=== PATIENT | male | born 1940 | race Caucasian/White ===

== ENCOUNTER 2016-08-06 18:10 | Inpatient (IN) | payer OTHER ==
[~2016-08-06] VITALS: Ht 188 cm; Wt 118.1 kg
[~2016-08-06 18:10] MED LIST: DOXA4TAB3 PO; GLIP5TAB PO; LISI-313 PO; PRAV40TA PO
[2016-08-06] MEDS ORDERED: SOD CHLORIDE 0.9% 500 ML IV STA (19:07)
[2016-08-06 19:30] LABS: BASOPHILS % 0.2 % (0.0-2.0); EOSINOPHILS % 0.3 % (0.0-7.0); HEMOGLOBIN 12.4 g/dl (14.0-18.0); LYMPHOCYTES # 0.7 10^3/ul (0.8-2.9); LYMPHOCYTES % 12.8 % (15.0-51.0); MEAN CORPUSCULAR HGB CONC 34.5 g/dl (32.0-37.0); MEAN CORPUSCULAR VOLUME 95.7 fl (82.0-101.0); MEAN PLATELET VOLUME 8.3 fl (7.4-10.4); MONOCYTE # 0.3 10^3/ul (0.3-0.9); MONOCYTES % 4.9 % (0.0-11.0); NEUTROPHIL # 4.4 10^3/ul (1.6-7.5); NEUTROPHILS % 81.8 % (39.0-77.0); PLATELET COUNT 125 10^3/UL (140-440); RED BLOOD COUNT 3.76 10^6/ul (4.70-6.10); RED CELL DISTRIBUTION WIDTH 13.8 % (11.5-14.5); UNCORRECTED WBC 5.3 10^3/ul (4.8-10.8); WHITE BLOOD COUNT 5.3 10^3/ul (4.8-10.8)
[2016-08-06 19:33] LABS: CONDITION 1
--- NOTE | 2016-08-06 19:36 | RADRPT ---
PROCEDURE: XR Chest. CLINICAL INDICATION: Chest pain. TECHNIQUE: Single frontal view of the chest was obtained COMPARISON: 12/17/2014. FINDINGS: Cardiomegaly. Atherosclerotic calcifications in the thoracic aorta. Mild patchy air space disease. There is no pleural effusion or pneumothorax. IMPRESSION: 1. Cardiomegaly with atherosclerotic calcifications in the thoracic aorta. 2. Mild failure. RPTAT: [facility]U Physician Issa Date Time Electronically viewed and signed by Thu Montaño Physician on 08/06/2016 19:36 RS/
[2016-08-06 19:52] LABS: INR 0.97; PROTIME 12.9 Sec (12.2-14.2)
[2016-08-06 19:53] LABS: PARTIAL THROMBOPLASTIN TIME 32.6 Sec (25.0-35.0)
[2016-08-06 19:54] LABS: POTASSIUM 4.4 mmol/L (3.5-5.1)
[2016-08-06 19:57] LABS: CALCIUM 9.1 mg/dl (8.4-10.2); CREATININE 1.18 mg/dl (0.61-1.24)
[2016-08-06 20:09] LABS: TROPONIN-I 0.105 ng/ml (0.00-0.12)
[2016-08-06 20:36] LABS: ADD UMIC YES; URINE BILIRUBIN (Dip) NEGATIVE (NEGATIVE); URINE BLOOD (Dip) NEGATIVE (NEGATIVE); URINE COLOR LT. YELLOW (YELLOW); URINE GLUCOSE (Dip) NEGATIVE (NEGATIVE); URINE KETONES (Dip) NEGATIVE (NEGATIVE); URINE LEUKOCYTE ESTERASE (Dip) NEGATIVE (NEGATIVE); URINE NITRITE (Dip) NEGATIVE (NEGATIVE); URINE TOTAL PROTEIN (Dip) 1+ (NEGATIVE); URINE UROBILINOGEN (Dip) 0.2 E.U./dL (0.1-1.0)
[2016-08-06] MEDS ORDERED: SOD CHLORIDE 0.9% 1,000 ML IV SCH (20:39)
--- NOTE | 2016-08-06 20:44 | ERA ---
ER Documentation Chief Complaint Date/Time DATE: 08/06/16 TIME: 20:40 Chief Complaint RAPID HEART BEAT AT HOME, DIZZINESS HPI This is a 75-year-old male who presents to the emergency room for evaluation of palpitations, dizziness, and slight chest discomfort. He states that the symptoms occurred at this morning while he was outside, he states that he felt dizzy and sat down. He states that when he sat down he became very sweaty, and felt extremely weak. He states that he felt his heart racing and he felt a slight pressure. The patient states that he called his caregiver who called 911 and transfer the patient to the emergency room. He is denying any active chest pain at this time. ROS All systems reviewed and are negative except as per history of present illness. Medications Home Meds Reported Medications Lisinopril* (Lisinopril*) 5 Mg Tablet, 5 MG PO DAILY, #30 TAB 01/31/16 Doxazosin Mesylate* (Doxazosin Mesylate*) 4 Mg Tablet, 4 MG PO HS, TAB 12/17/14 Pravastatin Sodium* (Pravachol*) 40 Mg Tablet, 40 MG PO HS 12/17/14 Glipizide XL* (Glucotrol XL*) 5 Mg Tab.er.24, 5 MG PO DAILY 12/17/14 Allergies Allergies: Coded Allergies: Penicillins (Verified Allergy, Unknown, 01/31/16) bacitracin (Verified Allergy, Unknown, 01/31/16) neomycin (Verified Allergy, Unknown, 01/31/16) polymyxin B (Verified Allergy, Unknown, 01/31/16) PMhx/Soc History of Surgery: Yes (Varicose veins, 55 years ago. Patch in a ulcer 50 years ago.) Anesthesia Reaction: No Hx Neurological Disorder: No Hx Respiratory Disorders: No Hx Cardiac Disorders: Yes (Cardiologyst monitoring one of his heart valve. CAD) Hx Psychiatric Problems: No Hx Miscellaneous Medical Probl: No (diabetes, htn) Hx Alcohol Use: Yes (Sometimes) Hx Substance Use: No Hx Tobacco Use: No Smoking Status: Never smoker Physical Exam Vitals Vital Signs Date Time Temp Pulse Resp B/P Pulse Ox O2 Delivery O2 Flow Rate FiO2 08/06/16 19:04 82 20 106/66 98 Room Air 08/06/16 18:16 98.7 84 18 115/63 96 Physical Exam INITIAL VITAL SIGNS: Reviewed by me GENERAL: The patient is well developed and appropriate for usual state of health in no apparent distress HEENT: Pupils equal, round, and reactive to light. EOMI. There is no scleral icterus. NECK: C-spine is soft and supple, there is no meningismus. There is no cervical lymphadenopathy. LUNGS: Clear to auscultation bilaterally. There are no rales, wheezes or rhonchi. HEART: Regular rate and rhythm, no murmurs, clicks, rubs or gallops. ABDOMEN: Soft, non-tender, non-distended. There are bowel sounds in all four quadrants. No rebound or guarding. EXTREMITIES: 2+ pitting edema in the bilateral lower extremities, cellulitis of the bilateral lower extremities NEUROLOGICAL: The patient moves all four extremities with 5/5 strength. Cranial nerves II - XII are intact. Normal gait. Alert and oriented SKIN: There is no apparent rash or petechiae. HEME/LYMPHATIC: There is no evidence of excessive bruising or lymphedema. PSYCHIATRIC: The patient does not appear anxious or depressed. Result Diagram: 08/06/16190908/06/161909 Results 24 hrs Laboratory Tests Test 08/06/16 19:10 Activated Partial Thromboplast Time 32.6Sec Anion Gap 18 Basophils # 0.010^3/ul Basophils % 0.2% Blood Urea Nitrogen 22mg/dl Calcium Level 9.1mg/dl Carbon Dioxide Level 24mmol/L Chloride Level 107mmol/L Creatinine 1.18mg/dl Eosinophils # 0.010^3/ul Eosinophils % 0.3% Glucose Level 139mg/dl Hematocrit 36.0% Hemoglobin 12.4g/dl INR International Normalized Ratio 0.97 Lymphocytes # 0.710^3/ul Lymphocytes % 12.8% Mean Corpuscular Hemoglobin 33.0pg Mean Corpuscular Hemoglobin Concent 34.5g/dl Mean Corpuscular Volume 95.7fl Mean Platelet Volume 8.3fl Monocytes # 0.310^3/ul Monocytes % 4.9% Neutrophils # 4.410^3/ul Neutrophils % 81.8% Nucleated Red Blood Cells # 0.010^3/ul Nucleated Red Blood Cells % 0.0/100WBC Platelet Count 19091^3/UL Potassium Level 4.4mmol/L Prothrombin Time 12.9Sec Prothrombin Time Ratio 1.0 Red Blood Count 3.7610^6/ul Red Cell Distribution Width 13.8% Sodium Level 145mmol/L Troponin I 0.105ng/ml White Blood Count 5.310^3/ul Current Medications Medications (Trade) Dose Ordered Sig/Chaparrita Route PRN Reason Start Time Stop Time Status Last Admin Dose Admin Sodium Chloride (NS) 500 ml @ 500 mls/hr Q1H STAT IV 08/06/16 19:07 08/06/16 20:06 DC 08/06/16 19:20 Procedures/MDM EKG: Rate/Rhythm: [Normal Sinus Rhythm] QRS, ST, T-waves: [No changes consistent w/ acute ischemia] Impression: [No evidence of ischemia or arrhythmia] Chest X-ray 1V Interpreted by me: Soft Tissue: No acute abnormalities Bones: No acute abnormalities Mediastinum/Cardiac Silhouette/Lungs: [No acute abnormalities] This 75-year-old male presents to the emergency room for evaluation of palpitations and chest discomfort. This patient is 75-years old with a history of hypertension. Lab work was obtained including a troponin. This patient's EKG did show slightly peaked T waves however no evidence of acute ischemia of his first EKG. His troponin result came back and it was at the upper limit of normal. I reviewed his previous troponins and they have all been negative. Given the fact that this patient does have a slightly elevated troponin from his baseline and given his symptoms he will be placed in for admission at this time for cardiac evaluation for ACS rule out. The patient is okay with her plan of care, he is hemodynamically stable at this time. I have spoken with her panel physician, Dr. song who accepts the patient at this time. Departure Diagnosis: Primary Impression: Palpitations Additional Impressions: Chest pain Normocytic anemia Thrombocytopenia Condition: Stable JACKMARCOS SOLIMANGLORIA MIRANDA Aug 06, 2016 20:44
[2016-08-06] MEDS ORDERED: ONDANSETRON 4 MG INJ IV PRN (21:00)
[2016-08-06] MEDS ORDERED: ACETAMINOPHEN 325 MG TAB PO PRN (21:00)
[2016-08-06 21:05] LABS: URINE RBCS 0-2 /HPF (0)
[2016-08-06 21:06] LABS: BACTERIA,URINE FEW; SQUAMOUS EPITHELIAL CELL,UR FEW
[2016-08-07] VITALS (7 sets, daily range): BP systolic 100–119; BP diastolic 58–59; PULSE 72–77; RESP 16–20; TEMP 98.5; Ht 188 cm; Wt 118.1 kg
[2016-08-07 02:41] LABS: CK-MB 1.11 ng/ml (0.0-2.4)
[2016-08-07 02:44] LABS: TROPONIN-I 0.098 ng/ml (0.00-0.12)
[2016-08-07] MEDS ORDERED: NACL 0.9% 3 ML SYG IV SCH (03:00)
[2016-08-07] MEDS ORDERED: morphine 2 MG INJ IV PRN (03:00)
[2016-08-07] MEDS ORDERED: ONDANSETRON 4 MG INJ IV PRN (03:00)
[2016-08-07] MEDS ORDERED: DOCUSATE SODIUM 100 MG CAP PO PRN (03:00)
[2016-08-07] MEDS ORDERED: HYDROCODONE/APAP (5/325) TAB PO PRN (03:00)
[2016-08-07] MEDS ORDERED: GLUCOSE GEL 15 GRAM TUBE PO PRN ×2 (04:00)
[2016-08-07] MEDS ORDERED: GLUCOSE GEL 15 GRAM TUBE BUCCAL PRN (04:00)
[2016-08-07] MEDS ORDERED: GLUCAGON 1 MG INJ IM PRN (04:00)
[2016-08-07] MEDS ORDERED: DEXTROSE 50% 50 ML SYRINGE IV PRN ×2 (04:00)
[2016-08-07 06:09] LABS: BASOPHILS % 0.3 % (0.0-2.0); EOSINOPHILS # 0.1 10^3/ul (0.0-0.5); EOSINOPHILS % 1.3 % (0.0-7.0); HEMATOCRIT 32.8 % (42.0-52.0); HEMOGLOBIN 11.4 g/dl (14.0-18.0); LYMPHOCYTES # 0.8 10^3/ul (0.8-2.9); LYMPHOCYTES % 19.1 % (15.0-51.0); MEAN CORPUSCULAR HEMOGLOBIN 33.2 pg (29.0-33.0); MEAN CORPUSCULAR HGB CONC 34.6 g/dl (32.0-37.0); MEAN CORPUSCULAR VOLUME 95.8 fl (82.0-101.0); MEAN PLATELET VOLUME 8.6 fl (7.4-10.4); MONOCYTE # 0.3 10^3/ul (0.3-0.9); NEUTROPHILS % 72.3 % (39.0-77.0); PLATELET COUNT 109 10^3/UL (140-440); RED BLOOD COUNT 3.42 10^6/ul (4.70-6.10); RED CELL DISTRIBUTION WIDTH 13.9 % (11.5-14.5); UNCORRECTED WBC 4.1 10^3/ul (4.8-10.8); WHITE BLOOD COUNT 4.1 10^3/ul (4.8-10.8)
[2016-08-07 06:13] LABS: POTASSIUM 4.3 mmol/L (3.5-5.1)
[2016-08-07 06:14] LABS: CONDITION 1
[2016-08-07 06:15] LABS: CREATININE 0.98 mg/dl (0.61-1.24)
[2016-08-07 06:16] LABS: CALCIUM 8.6 mg/dl (8.4-10.2); CHOL/HDL RATIO 3.9 RATIO; MAGNESIUM 1.9 mg/dl (1.7-2.5)
[2016-08-07] MEDS: INSULIN ASPART [NOVOLOG] 3 ML PEN SC SCH ×3 (08:00→20:59)
[2016-08-07 08:23] LABS: TROPONIN-I 0.061 ng/ml (0.00-0.12)
[2016-08-07 08:43] LABS: CK-MB 1.51 ng/ml (0.0-2.4)
[2016-08-07] MEDS ORDERED: glipiZIDE (XL) 5 MG TAB PO SCH (09:00)
--- NOTE | 2016-08-07 09:07 | HP ---
DATE OF ADMISSION: 08/06/2016 TIME: 11:00 p.m. CHIEF COMPLAINT: Dizziness and diaphoresis. HISTORY OF PRESENT ILLNESS: The patient is a 75-year-old male with a history of diabetes and diabet ic foot ulcer. Patient also reportedly has a history of a valve stenosis and is scheduled to receiv e a valve replacement in the future once his diabetic foot ulcer is taken care of. The patient is roy pposed to receive a skin graft at [facility] tomorrow. The patient is not clear which cardiac valv e it is that is going to be replaced. The patient states that he felt dizzy earlier today. He repo rts some diaphoresis, tried to check his blood pressure, but his monitor blood pressure cuff was not working. Denies any chest pain. Denies any shortness of breath. He states that this has happened before in the past but has resolved on its own. He has no other complaints at this time. PAST MEDICAL HISTORY: Gea-apezaap-vwbkxixld diabetes, hypertension, dyslipidemia, varicose veins wi th ulcer on his feet. The patient is supposed to get a skin graft tomorrow at [facility] . The patient also has a history of heart valve and is supposed to have a replacement in the near [facility] once his ulcer has resolved. The patient also had a history of right inguinal hernia repair. HOME MEDICATIONS: 1. Lisinopril. 2. Doxazosin. 3. Pravastatin. 4. Glipizide. ALLERGIES: 1. PENICILLIN. 2. BACITRACIN. 3. NEOMYCIN. 4. POLYMYXIN B. FAMILY HISTORY: Denies. SOCIAL HISTORY: Denies any alcohol, tobacco, or drug abuse. REVIEW OF SYSTEMS: A 12-point review of systems is negative except as in HPI. PHYSICAL EXAMINATION: VITAL SIGNS: Temperature is 98.7, pulse is 64, respiratory rate is 20, blood pressure 98/64, satura tion 98% on 2 liters. GENERAL: No acute distress, alert and oriented. HEENT: Normocephalic, atraumatic. LUNGS: Clear to auscultation. CARDIOVASCULAR: Regular rate and rhythm. ABDOMEN: Nondistended, nontender, soft. EXTREMITIES: No clubbing, cyanosis, or edema. Right leg covered in dressing. LABORATORIES: CBC: White count was 5.3, hemoglobin 12.4, platelets are 125. Chemistry: Sodium is 145, potassium 4.4, anion gap 18, BUN is 22. INR is 0.97. UA is within normal limits except for 1 + total protein, and elevated specific gravity. DIAGNOSTICS: Chest x-ray shows cardiomegaly with atherosclerotic calcifications in the thoracic aor ta. ASSESSMENT AND PLAN: 1. Dizziness with diaphoresis is likely secondary to also aortic valve stenosis. It is unclear whic h valve is stenotic but its clinical presentation would be consistent with an aortic valve stenosis. Will obtain a 2D echo to confirm this. The patient does have good followup with his PCP and is sc heduled to receive aortic valve replacement in the future once his foot ulcer is resolved. The poppy ent denies any chest pain, shortness of breath. Will also obtain a carotid ultrasound to rule out an y significant stenosis in the carotids. 2. Diabetes. Continue home medications. 3. Hypertension. We will hold p.o. medications. Blood pressure is running low, his hypotension co uld also be responsible for his dizziness and diaphoresis. 4. Foot ulcer. This could be secondary to stasis disease, ulcers, diabetes. Patient is scheduled to receive a skin graft tomorrow. He does have home health already with wound care. 5. Prophylaxis: Lovenox. Dictated By: CYRIL ELAINE MD BS/NTS Conf#: [id number] DID#: [id number]
--- NOTE | 2016-08-07 09:59 | RADRPT ---
PROCEDURE: Carotid ultrasound CLINICAL INDICATION: Dizziness, carotid bruits TECHNIQUE: Andre scale, color doppler, spectral doppler ultrasound of the bilateral carotid and kadeem tebral arteries. This study does indirectly reference the measurement of the distal ICA diameter as the denominator f or stenosis measurement. Validated velocity measurements with angiographic measurements, velocity cr iteria are extrapolated from diameter data as defined by: *Cartoid artery stenosis: andre-scale and D oppler US diagnosis. Society of Radiologists in Ultrasound Consensus Conference. Radiology 2003; 229 : 340-346. SRU Consensus Conference Criteria for the Diagnosis of Carotid Artery Stenosis* Degree of Stenosis, % ICA PSV, cm/sec Plaque Estimate, % ICA/CCA PSV Ratio Normal <125 None <2.0 <50 <125 <50 <2.0 50 69 125-230 >50 2.0-4.0 >70 but less than near occlusion >230 >50 <4.0 Near occlusion High, low, or undetectable Visible Variable Total occlusion Undetectable Visible, no detectable lumen Not applicable COMPARISON: No prior studies are available for comparison. FINDINGS: Location Right CCA65 cm/sec Prox ICA 44 cm/sec Mid ICA65 cm/sec Dist ICA56 cm/sec ECA75 cm/sec ICA/CCA1.0 Left CCA78 cm/sec Prox ICA 59 cm/sec Mid ICA50 cm/sec Dist ICA49 cm/sec ECA44 cm/sec ICA/CCA0.8 Plaque burden: A minimal amount of plaque is present within the visualized portions of both internal carotid arteries however there is no evidence of flow acceleration to suggest a hemodynamically sig nificant stenosis. Antegrade flow is seen within the vertebral arteries bilaterally. IMPRESSION: A minimal amount of plaque is present within the visualized portions of both internal carotid arteri es however there is no evidence of flow acceleration to suggest a hemodynamically significant stenos is. RPTAT: AADD .Joe Prince MD, MD Date Time Electronically viewed and signed by .Joe Prince MD, on 08/07/2016 09:58 .B/
[2016-08-07] MEDS: ENOXAPARIN 40 MG/0.4 ML SYG SC SCH (11:02)
--- NOTE | 2016-08-07 15:44 | CONS ---
Date/Time of Note Date/Time of Note DATE: 08/07/16 TIME: 15:40 Consult Date/Type/Reason Admit Date/Time Initial Consult Date Type of Consultation: pulmonary Subjective Patient stable no new events Denies chest pain no fever no chills, no sputum production Explained his episode of transient dizziness presyncopal symptoms prior to this admission He also contacted his plastic surgeon who wants to do a flap procedure for lower extremity wounds. This procedure has been rescheduled. Objective Vital Signs Date Time Temp Pulse Resp B/P Pulse Ox O2 Delivery O2 Flow Rate FiO2 08/07/16 14:42 71 16 97/60 100 Room Air 08/07/16 13:41 2.0 08/07/16 06:35 98.5 PHYSICAL EXAMINATION: Elderly gentleman comfortable at rest no acute distress VITAL SIGNS: GENERAL: No acute distress, alert and oriented. HEENT: Normocephalic, atraumatic. LUNGS: Clear to auscultation. No added sounds or murmurs CARDIOVASCULAR: Regular rate and rhythm. ABDOMEN: Nondistended, nontender, soft. EXTREMITIES: No clubbing, cyanosis, or edema. Both lower extremities under dressings Results/Medications Result Diagram: 08/07/16 0520 08/07/16 0520 Results 24 hrs Laboratory Tests Test 08/06/16 19:10 08/06/16 20:25 08/07/16 02:00 08/07/16 05:20 Activated Partial Thromboplast Time 32.6 Anion Gap 18 H 14 Basophils # 0.0 0.0 Basophils % 0.2 0.3 Blood Urea Nitrogen 22 H 18 Calcium Level 9.1 8.6 Carbon Dioxide Level 24 24 Chloride Level 107 108 Creatinine 1.18 0.98 Eosinophils # 0.0 0.1 Eosinophils % 0.3 1.3 Glucose Level 139 115 Hematocrit 36.0 L 32.8 L Hemoglobin 12.4 L 11.4 L INR International Normalized Ratio 0.97 Lymphocytes # 0.7 L 0.8 Lymphocytes % 12.8 L 19.1 Mean Corpuscular Hemoglobin 33.0 33.2 H Mean Corpuscular Hemoglobin Concent 34.5 34.6 Mean Corpuscular Volume 95.7 95.8 Mean Platelet Volume 8.3 8.6 Monocytes # 0.3 0.3 Monocytes % 4.9 7.0 Neutrophils # 4.4 3.0 Neutrophils % 81.8 H 72.3 Nucleated Red Blood Cells # 0.0 0.0 Nucleated Red Blood Cells % 0.0 0.0 Platelet Count 125 L 109 L Potassium Level 4.4 4.3 Prothrombin Time 12.9 Prothrombin Time Ratio 1.0 Red Blood Count 3.76 L 3.42 L Red Cell Distribution Width 13.8 13.9 Sodium Level 145 H 142 Troponin I 0.105 0.098 White Blood Count 5.3 # 4.1 #L Urine Bacteria FEW Urine Bilirubin NEGATIVE Urine Clarity CLEAR Urine Color LT. YELLOW Urine Glucose NEGATIVE Urine Hemoglobin NEGATIVE Urine Ketones NEGATIVE Urine Leukocyte Esterase NEGATIVE Urine Microscopic RBC 0-2 Urine Microscopic WBC 0-2 Urine Nitrite NEGATIVE Urine Specific [place] >=1.030 H Urine Squamous Epithelial Cells FEW Urine Total Protein 1+ H Urine Urobilinogen 0.2 E.U./dL Urine pH 6.0 Creatine Kinase 57 Creatine Kinase Index 1.9 Creatinine Kinase MB (Mass) 1.11 Cholesterol Level 122 Cholesterol/HDL Ratio 3.9 HDL Cholesterol 31 Hemoglobin A1c 5.5 LDL Cholesterol, Calculated 76 Magnesium Level 1.9 Triglycerides Level 75 Test 08/07/16 07:53 08/07/16 10:12 08/07/16 12:17 Creatine Kinase 77 Creatine Kinase Index 2.0 Creatinine Kinase MB (Mass) 1.51 Troponin I 0.061 Bedside Glucose 123 156 Medications Current Medications Ondansetron HCl (Zofran Inj) 4 mg Q6H PRN IV NAUSEA AND/OR VOMITING; Start 08/07 at 03:00 Acetaminophen/ Hydrocodone Bitart ([place] (5/325)) 1 tab Q6H PRN PO MODERATE PAIN LEVEL 4-6; Start 08/07/16 at 03:00 Morphine Sulfate (morphine) 2 mg Q4H PRN IV SEVERE PAIN LEVEL 7-10; Start at 03:00 Docusate Sodium (Colace) 100 mg Q12H PRN PO CONSTIPATION; Start 08/07/16 at 03: 00 Enoxaparin Sodium (Lovenox) 40 mg DAILY SC Last administered on 08/07/16t 11:02 ; Admin Dose 40 MG; Start 08/07/16 at 09:00 Diagnostic Test (Pha) (Accucheck) 1 ea 02 XX ; Start 08/08/16 at 02:00 Miscellaneous Information 1 ea NOTE XX ; Start 08/07/16 at 04:00 Glucose (Glutose) 15 gm Q15M PRN PO DECREASED GLUCOSE; Start 08/07/16 at 04:00 Glucose (Glutose) 22.5 gm Q15M PRN PO DECREASED GLUCOSE; Start 08/07/16 at 04:00 Dextrose (D50w Syringe) 25 ml Q15M PRN IV DECREASED GLUCOSE; Start 08/07/16 at 04:00 Dextrose (D50w Syringe) 50 ml Q15M PRN IV DECREASED GLUCOSE; Start 08/07/16 at 04:00 Glucagon (Glucagen) 1 mg Q15M PRN IM DECREASED GLUCOSE; Start 08/07/16 at 04:00 Glucose (Glutose) 15 gm Q15M PRN BUCCAL DECREASED GLUCOSE; Start 08/07/16 at 04: 00 Atorvastatin Calcium (Lipitor) 10 mg DAILY@21 PO ; Start 08/07/16 at 21:00 Assessment/Plan Chief Complaint/Hosp Course ASSESSMENT AND PLAN: 1. Dizziness with diaphoresis is likely secondary to also aortic valve stenosis. Pending aortic valve replacement following resolution of lower extremity wounds. Will need cardiology evaluation for presyncopal event. Bilateral carotid Dopplers pending patient has a history of right carotid endarterectomy. 2. Diabetes. Continue home medications. 3. Hypertension. Antihypertensives currently on hold pending reevaluation by cardiology. Low blood pressure this morning was noted. 4. Foot ulcer. This could be secondary to stasis disease, ulcers, diabetes. Patient is scheduled to receive a skin graft tomorrow. 5. Prophylaxis: Lovenox. Disposition pending admission from ER to telemetry. Problems: RAY SOTOMAYOR MD, [facility] Aug 07, 2016 15:44
--- NOTE | 2016-08-07 15:58 | RADRPT ---
Echocardiogram Report Patient Name: CHRISTEN LOPEZ Gender: Male Date: 1940 Study Date: 07-Aug-2016 Carboy Filler: Jose David Davis [facility] [place] Location: [facility] Ref. Physician: CYRIL ELAINE Quality: Adequate Procedures: Transthoracic echocardiogram with complete 2D, M-Mode, and doppler examination. Indications: Dizziness. 2D/M Mode Doppler Measurement Value Normal Ranges Measurement Value Normal Ranges LVIDd 2D 5.8 3.5 - 5.6 cm THEO Vmax 0.6 cm2 LVIDs 2D 3.7 2.1 - 4.1 cm THEO VTI 0.7 cm2 FS 2D 36.2 % AV Mean Jake 3.8 m/sec LVPWd 2D 1.2 0.6 - 1.1 cm AV Mean PG 62.0 mmHg IVSd 2D 1.1 0.6 - 1.1 cm AV Peak Jake 4.9 m/sec IVS/LVPW 2D 1.0 AV Peak PG 96.0 mmHg AoR Diam 2D 3.4 2.0 - 3.7 cm AV VTI 123.0 cm LA/Ao 2D 1 0 - 1 LVOT Mean Jake 0.8 m/sec EDV 2D 193.0 cm3 LVOT Mean PG 2.0 mmHg ESV 2D 50.2 cm3 LVOT Peak Jake 1.0 m/sec LA Dimen 2D 4.1 2.3 - 4.0 cm LVOT Peak PG 4.0 mmHg LVOT Diam 2.0 cm LVOT VTI 28.6 cm LVOT Area 3.1 cm2 MV E Peak Jake 1.1 m/sec MV A Peak Jake 1.4 m/sec MV E/A 0.8 MV Decel Time 194 msec MV E/A 0.8 TR Peak Jake 3.2 m/sec TR Peak PG 41.0 mmHg RVSP 49.0 mmHg Findings Left Ventricle: Normal left ventricular systolic function. Normal left ventricular cavity size. Mild concentric left ventricular hypertrophy. Ejection fraction is visually estimated at 55 %. Tissue Doppler/Mitral Doppler indices are consistent with impaired relaxation (Stage I diastolic dysfunction). Right Ventricle: Normal right ventricular size. Normal right ventricular systolic function. Left Atrium: There is mild enlargement of left atrium. Right Atrium: The right atrium is normal in size. Mitral Valve: Mitral valve leaflets appear mildly thickened. Mild mitral annular calcification. Mild mitral valve regurgitation. Aortic Valve: Aortic valve not well visualized. Severe aortic stenosis. Aortic valve Max velocity 4.90 m/sec. Max PG 96.00 mmHg. Mean PG 62.00 mmHg. Aortic valve area 0.73 cm2. Aortic cusps appear severely calcified. Tricuspid Valve: Normal appearance of the tricuspid valve. Estimated peak PA systolic pressure 49 mmHg. There is mild to moderate tricuspid regurgitation. Pericardium: Normal pericardium with no significant pericardial effusion. Aorta: Normal aortic root. IVC: Dilated IVC with respiratory collapse consistent with elevated right atrial pressure. Conclusions 1.Normal left ventricular systolic function. Normal left ventricular cavity size. Mild concentric left ventricular hypertrophy. Ejection fraction is visually estimated at 55 %. Tissue Doppler/Mitral Doppler indices are consistent with impaired relaxation (Stage I diastolic dysfunction). 2.There is mild enlargement of left atrium. 3.Mitral valve leaflets appear mildly thickened. Mild mitral annular calcification. Mild mitral valve regurgitation. 4.Aortic valve not well visualized. Severe aortic stenosis. Aortic valve Max velocity 4.90 m/sec. Max PG 96.00 mmHg. Mean PG 62.00 mmHg. Aortic valve area 0.73 cm2. Aortic cusps appear severely calcified. 5.Normal appearance of the tricuspid valve. Estimated peak PA systolic pressure 49 mmHg. There is mild to moderate tricuspid regurgitation. 6.Dilated IVC with respiratory collapse consistent with elevated right atrial pressure. Electronically Signed By: Deepak Denton 07-Aug-2016 15:57:46 -0800 Patient Name: CHRISTEN LOPEZ Study Date: 07-Aug-2016 [id number]
--- NOTE | 2016-08-07 16:59 | CONS ---
DATE OF ADMISSION: 08/06/2016 DATE OF CONSULTATION: 08/07/2016 REFERRING PHYSICIAN: Dr. Sotomayor. REASON FOR CONSULTATION: Aortic stenosis. CHIEF COMPLAINT: Dizziness, diaphoresis. HISTORY OF PRESENT ILLNESS: Thank you for this referral. History obtained from the patient, review of the old chart, discussion with the physician and staff. This is a pleasant 75-year-old gentlema n with history of apparently known severe aortic stenosis. He has been evaluated by cardiology and possibly CT surgery as well with history of AVR, who came to the above complaint. Yesterday he had some dizziness and lightheadedness. It lasted about 10 minutes. He did not pass out. He did not h ave any syncopal episode. He also had some diaphoresis with no chest pain or pressure. He has been admitted to rule out myocardial infarction. He said he is currently feeling fine. PAST MEDICAL HISTORY: History of aortic stenosis. The patient stated that he has been evaluated by cardiology and CT surgery and the cardiothoracic surgeon told him that he needs to have his skin gr aft done before can get his valve replaced. He was scheduled to get a skin graft in fact tomorrow. The patient also has history of diabetes, hypertension, dyslipidemia, has had varicose vein and has lower extremity revascularization and lower extremity varicose veins stripping done. PAST SURGICAL HISTORY: Right inguinal hernia repair. He also had a coronary angiography done. He is not sure where it was done, but he said he was told that his coronaries were fine. MEDICATIONS AT HOME 1. Lisinopril. 2. Doxazosin. 3. Pravastatin. 4. Glipizide. ALLERGIES: 1. PENICILLIN. 2. BACITRACIN. 3. NEOMYCIN. 4. POLYMYXIN. FAMILY HISTORY: No reported coronary artery disease. SOCIAL HISTORY: Does not smoke or drink. REVIEW OF SYSTEMS: As above mentioned, denied all other. PHYSICAL EXAMINATION: VITAL SIGNS: Temperature 98.5, heart rate of 71, blood pressure of 97/60, respiratory rate of 16, s aturating 100%. HEENT: Normocephalic, atraumatic. Pupils are equal. CARDIOVASCULAR: Regular rate and rhythm, systolic ejection murmur quadrant, 4/6. PULMONARY: With no wheezes heard. GASTROINTESTINAL: Soft, nontender. EXTREMITIES: Positive lower extremity edema. NEUROLOGIC: Awake, responds appropriately. PSYCHIATRIC: Appears to be calm and pleasant. LABORATORY: Sodium 142, potassium 4.3, BUN 18, creatinine 0.98, glucose 115. Troponin has been neg ative x3. Cholesterol 122, LDL 76. ASSESSMENT AND PLAN: 1. Presyncope. 2. Echocardiogram was also personally reviewed, showed normal LV size and ejection fraction on pers onal review appears to be about 55%. There is a calcified aortic valve with probably severe aortic stenosis, mean gradient was calculated at 62 with a peak gradient of 96. Aortic valve area was calc ulated at 0.7 cm2. ASSESSMENT AND PLAN: 1. Presyncope. 2. Severe aortic stenosis. 3. Diabetes 4. Diabetic foot ulcers. 5. History of dyslipidemia under good control. 6. History of hypertension, currently hypotensive. RECOMMENDATIONS: Given his severe aortic stenosis, I recommend discontinuation of the ISACC inhibitor . Statin will be continued as tolerated. Cardiac enzymes have been negative. We will monitor on t elemetry, monitor his arrhythmia s. The patient said he has already been evaluated by CT surgery an d had an angiography done. Outpatient workup with his own cardiac surgeons as soon as possible for surgical repair. Dictated By: ERIKA VILLALPANDO MD AV/MONSTER Conf#: [id number] DID#: [id number] CC: RAY SOTOMAYOR MD;*End*
[2016-08-07] MEDS ORDERED: ATORVASTATIN 10 MG TAB PO SCH (21:00)
[2016-08-07] MEDS ORDERED: PRAVASTATIN SODIUM 40 MG PO SCH (21:00)
[2016-08-08] VITALS (8 sets, daily range): BP systolic 90–123; BP diastolic 51–73; PULSE 61–80; RESP 16–20
[2016-08-08] MEDS ORDERED: ACCUCHECK AT 2AM (Patients on SS coverage) XX SCH (02:00)
[2016-08-08] MEDS: INSULIN ASPART [NOVOLOG] 3 ML PEN SC SCH ×2 (07:55→11:50)
[2016-08-08] MEDS: ENOXAPARIN 40 MG/0.4 ML SYG SC SCH (09:14)
--- NOTE | 2016-08-08 10:48 | PN ---
DATE: 08/08/2016 CARDIOLOGY FOLLOWUP NOTE SUBJECTIVE: The patient with no more syncopal or presyncopal episodes, breathing okay now. No ches t pain or pressure. Discussed with her daughter, discussed with the staff. Rhythm strip was review ed. Remains in sinus rhythm. MEDICATIONS: Reviewed. PHYSICAL EXAMINATION: VITAL SIGNS: Temperature 97.4, heart rate of 80, blood pressure 105/60, respiration rate of 20, sat urating 98%. HEENT: Normocephalic, atraumatic. Pupils are equal. CARDIOVASCULAR: Regular rate and rhythm, systolic ejection murmur. PULMONARY: With no wheezes heard. GASTROINTESTINAL: Soft, nontender. EXTREMITIES: Positive lower extremity edema. NEUROLOGIC: Awake, responds appropriately. PSYCHIATRIC: Appears to be calm and very pleasant. LABORATORY: Glucose of 122. ASSESSMENT AND PLAN: 1. Presyncope. 2. Severe aortic stenosis. 3. Diabetes. 4. Diabetic foot ulcer. 5. Dyslipidemia. 6. Hypertension. RECOMMENDATIONS: No significant arrhythmias was noted overnight. ISACC inhibitor has been discontinu ed given his severe aortic stenosis. Discussed with the daughter and explained that he should not b e taking it for now, given his severe aortic stenosis. The patient stated that he has had close fol lowup and is scheduled for skin graft followed by valve surgery soon. 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 Dictated By: ERIKA VILLALPANDO MD AV/MONSTER Conf#: [id number] DID#: [id number] CC: RAY SOTOMAYOR MD;*End*
--- NOTE | 2016-08-08 13:21 | DS ---
Date/Time of Note Date/Time of Note DATE: 08/08/16 TIME: 13:14 Discharge Summary Admission/Discharge Info Admit Date/Time Aug 06, 2016 at 20:40 Discharge Date/Time Final Diagnosis 1. Presyncope, due to hypotension, resolved 2. Severe aortic stenosis, stable, follow up with cardiology 3. Diabetes mellitus, stable, follow up with PCP 4. Diabetic foot ulcer, stable, chronic 5. Dyslipidemia, stable 6. Hypertension, stable, medication adjusted Patient Condition: Stable Hx of Present Illness The patient is a 75-year-old male with a history of diabetes and diabetic foot ulcer. Patient also reportedly has a history of a valve stenosis and is scheduled to receive a valve replacement in the future once his diabetic foot ulcer is taken care of. The patient is supposed to receive a skin graft at [facility] tomorrow. The patient is not clear which cardiac valve it is that is going to be replaced. The patient states that he felt dizzy earlier on 2016. He reports some diaphoresis, tried to check his blood pressure, but his monitor blood pressure cuff was not working. Denies any chest pain. Denies any shortness of breath. He states that this has happened before in the past but has resolved on its own. He has no other complaints at this time. Hospital Course Patient has near syncope from hypotension with BP down to 98/65, from both severe aortic stenosis with THEO 0.73 CM2 on echo and medications. Lisinopril is held. He has been asymptomatic after admission with stable blood pressure. 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 Home Meds Reported Medications Lisinopril* (Lisinopril*) 5 Mg Tablet, 5 MG PO DAILY, #30 TAB 01/31/16 Doxazosin Mesylate* (Doxazosin Mesylate*) 4 Mg Tablet, 4 MG PO HS, TAB 12/17/14 Pravastatin Sodium* (Pravachol*) 40 Mg Tablet, 40 MG PO HS 12/17/14 Glipizide XL* (Glucotrol XL*) 5 Mg Tab.er.24, 5 MG PO DAILY 12/17/14 Pending Labs Laboratory Tests Test 08/07/16 18:11 08/07/16 20:59 08/08/16 07:59 08/08/16 12:26 Bedside Glucose 106mg/dL (70-220) 137mg/dL (70-220) 122mg/dL (70-220) 118mg/dL (70-220) EZEQUIEL SUN MD Aug 08, 2016 13:21
== END 2016-08-08 14:35 | disposition home or self-care (01) | DRG 307 ==
LOC: E/R 18:10 → TEL 20:40
PROVIDERS: ADMIT Internal Medicine; ATTEND Internal Medicine
DX: I35.0 Nonrheumatic aortic (valve) stenosis (principal); E11.621 Type 2 diabetes mellitus with foot ulcer; I95.1 Orthostatic hypotension; Z79.4 Long term (current) use of insulin; I10 Essential (primary) hypertension; E78.5 Hyperlipidemia, unspecified; I87.8 Other specified disorders of veins
CPT/HCPCS: 71010; 80048; 80061; 81001; 81003; 82550; 82553; 82962; 83036; 83735; 84484; 85025; 85610; 85730; 93005; 93306; 93880; J1650; J1815; J7030; J7040

== ENCOUNTER 2016-08-30 08:20 | Inpatient (IN) | payer OTHER ==
[~2016-08-30] VITALS: Ht 188 cm; Wt 120.0 kg
[~2016-08-30 08:20] MED LIST changes: -LISI-313 PO; +PRA40 PO; -PRAV40TA PO
--- NOTE | 2016-08-30 09:55 | RADRPT ---
PROCEDURE: XR Chest AP portable CLINICAL INDICATION: Short of breath, wheezing TECHNIQUE: An AP portable radiograph of the chest was submitted. COMPARISON: 08/06/2016 FINDINGS: Support Hardware: None Cardiovascular: The heart is upper normal in size and pulmonary vasculature appears cephalized kia tible with pulmonary venous obstruction. The aorta appears mildly atherosclerotic.. Lung Palacios: There is interstitial prominence seen diffusely through the lung palacios slightly worsen ed suspicious for interstitial edema. Pleural Spaces: No pneumothorax or pleural effusion is identified. Osseous Structures: The osseous structures appear intact. Soft Tissues: The soft tissues appear generous. IMPRESSION: 1. The heart remains upper normal in size with the pulmonary vasculature is not congested. 2. Increased interstitial prominence suspicious for interstitial edema. Physician Deena Date Time Electronically viewed and signed by Physician Deena on 08/30/2016 09:54 /
[2016-08-30 10:02] LABS: ALBUMIN 3.9 g/dl (3.3-4.9); POTASSIUM 4.3 mmol/L (3.5-5.1)
--- NOTE | 2016-08-30 10:03 | RADRPT ---
PROCEDURE: CT Brain without contrast. CLINICAL INDICATION: Patient experiencing Syncope. TECHNIQUE: CT scan of the brain was performed on a multidetector high-resolution CT scan. Axial im aging was obtained of the brain without contrast administration. Coronal and sagittal reformatted i mages were obtained from the axial source images. Standard CT scan of the head without contrast prot ocols were performed. The total exam CTDI equals 42.43 mGy and the total exam DLP equals 720.23 mGy-cm. One or more of the following dose reduction techniques were used: - Automated exposure control. - Adjustment of the mA and/or kV according to patient size. Use of iterative reconstruction technique. COMPARISON: None. FINDINGS: The ventricular system and peripheral CSF spaces are proportionate prominent consistent with moderate generalized cerebral atrophy. Negative for intracranial masses hemorrhages or midline shift. The calderon-white matter junction is unremarkable. The paranasal sinuses and mastoids are unr emarkable. Bones and calvarium are unremarkable. IMPRESSION: 1. Moderate generalized cerebral atrophy without evidence of intracranial masses hemorrhages or mid line shift. RPTAT:AAJJ Physician Mitchell Date Time Electronically viewed and signed by Physician Mitchell on 08/30/2016 10:01 BM/
[2016-08-30 10:04] LABS: BILIRUBIN,INDIRECT 0.2 mg/dl (0-1.1); BILIRUBIN,TOTAL 0.2 mg/dl (0.2-1.3); CREATININE 1.24 mg/dl (0.61-1.24)
[2016-08-30 10:05] LABS: ALBUMIN/GLOBULIN RATIO 1.14; CALCIUM 9.1 mg/dl (8.4-10.2); TOTAL PROTEIN 7.3 g/dl (6.1-8.1)
--- NOTE | 2016-08-30 10:20 | ERD ---
ER Documentation Chief Complaint Date/Time DATE: 08/30/16 TIME: 10:13 Chief Complaint SOB, SYCOPAL EPISODE X 3 HPI Patient is a 75-year-old male who reports 3 episodes of syncope since yesterday. He also reports dyspnea that has been chronic and ongoing and not related to the syncope. In regards to the syncope he says that he will just be walking along and all of a sudden he feels like he is going to pass out. He says that he has been able to lay down and avoid actually hitting the floor. His reports that he actually loses consciousness and is out for about 5 minutes. She says he is diaphoretic during these episodes. He denies any chest pain, headache, nausea, vomiting, fever, paresthesias, or focal weakness. He states when he wakes up he feels fine. He tells me he is supposed to get his aortic valve replaced that he has been in the process of getting medically cleared to have this done. ROS All systems reviewed and are negative except as per history of present illness. Medications Home Meds Reported Medications Doxazosin Mesylate* (Doxazosin Mesylate*) 4 Mg Tablet, 4 MG PO HS, TAB 12/17/14 Pravastatin Sodium* (Pravachol*) 40 Mg Tablet, 40 MG PO HS 12/17/14 Glipizide XL* (Glucotrol XL*) 5 Mg Tab.er.24, 5 MG PO DAILY 12/17/14 Allergies Allergies: Coded Allergies: Penicillins (Verified Allergy, Unknown, 01/31/16) bacitracin (Verified Allergy, Unknown, 01/31/16) neomycin (Verified Allergy, Unknown, 01/31/16) polymyxin B (Verified Allergy, Unknown, 01/31/16) PMhx/Soc History of Surgery: Yes (VARICOSE VEINS, 55 YRS AGO. PATCH IN ULCER 50 YRS AGO) Anesthesia Reaction: No Hx Neurological Disorder: No Hx Respiratory Disorders: No Hx Cardiac Disorders: Yes (HTN. AORTIC VALVE STENOSIS. CAD) Hx Psychiatric Problems: No Hx Miscellaneous Medical Probl: Yes Hx Alcohol Use: Yes Hx Substance Use: No Hx Tobacco Use: No Smoking Status: Never smoker Physical Exam Vitals Vital Signs Date Time Temp Pulse Resp B/P Pulse Ox O2 Delivery O2 Flow Rate FiO2 08/30/16 09:02 92 28 101/65 97 08/30/16 08:24 99.9 93 20 103/57 99 Physical Exam Const: [] Well-developed well-nourished male in no acute distress Head: Atraumatic Eyes: Normal Conjunctiva ENT: Normal External Ears, Nose and Mouth. Neck: Full range of motion..~ No meningismus. Resp: Clear to auscultation bilaterally Cardio: Regular rate and rhythm, systolic ejection murmur heard Abd: Soft, non tender, non distended. Normal bowel sounds Skin: Obvious skin lesions both lower extremities, both lower extremities are wrapped. Back: No midline or flank tenderness Ext: No cyanosis, bilateral edema Neur: Awake and alert, oriented 3 moves all extremities equally Psych: Normal Mood and Affect Result Diagram: 08/30/16 0840 08/30/16 0840 Results 24 hrs Laboratory Tests Test 08/30/16 08:40 08/30/16 09:38 Alanine Aminotransferase (ALT/SGPT) 32IU/L Albumin 3.9g/dl Albumin/Globulin Ratio 1.14 Alkaline Phosphatase 72IU/L Anion Gap 16 Aspartate Amino Transf (AST/SGOT) 23IU/L Basophils # 0.010^3/ul Basophils % 0.0% Blood Urea Nitrogen 20mg/dl Calcium Level 9.1mg/dl Carbon Dioxide Level 26mmol/L Chloride Level 100mmol/L Creatinine 1.24mg/dl Direct Bilirubin 0.00mg/dl Eosinophils # 0.010^3/ul Eosinophils % 0.1% Globulin 3.40g/dl Glucose Level 227mg/dl Hematocrit 36.8% Hemoglobin 12.7g/dl Indirect Bilirubin 0.2mg/dl Lymphocytes # 0.110^3/ul Lymphocytes % 4.8% Mean Corpuscular Hemoglobin 33.4pg Mean Corpuscular Hemoglobin Concent 34.6g/dl Mean Corpuscular Volume 96.5fl Mean Platelet Volume 9.3fl Monocytes # 0.310^3/ul Monocytes % 9.6% Neutrophils # 2.510^3/ul Neutrophils % 85.5% Nucleated Red Blood Cells # 0.010^3/ul Nucleated Red Blood Cells % 0.0/100WBC Platelet Count 01664^3/UL Potassium Level 4.3mmol/L Red Blood Count 3.8210^6/ul Red Cell Distribution Width 14.0% Sodium Level 138mmol/L Total Bilirubin 0.2mg/dl Total Protein 7.3g/dl Troponin I 0.079ng/ml White Blood Count 3.010^3/ul Bedside Glucose 223mg/dL Current Medications Medications (Trade) Dose Ordered Sig/Chaparrita Route PRN Reason Start Time Stop Time Status Last Admin Dose Admin Ondansetron HCl (Zofran Inj) 4 mg BRIDGE ORDER PRN IV NAUSEA AND/OR VOMITING 08/30/16 12:00 08/31/16 11:59 Acetaminophen (Tylenol Tab) 650 mg ER BRIDGE PRN PO MILD PAIN/FEVER 08/30/16 12:00 08/31/16 11:59 Procedures/MDM EKG: Normal sinus rhythm at 90 bpm, right bundle branch block, no acute ischemic changes noted, no old EKG available for comparison Chest x-ray: No acute cardiopulmonary process noted 1017: No change in patient's exam at this time. He has not had any syncopal events here. 1018: I will consult the patient's primary care physician for admission. 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
[2016-08-30 10:56] LABS: CONDITION 1; EOSINOPHILS % 0.1 % (0.0-7.0); HEMATOCRIT 36.8 % (42.0-52.0); HEMOGLOBIN 12.7 g/dl (14.0-18.0); LYMPHOCYTES # 0.1 10^3/ul (0.8-2.9); LYMPHOCYTES % 4.8 % (15.0-51.0); MEAN CORPUSCULAR HEMOGLOBIN 33.4 pg (29.0-33.0); MEAN CORPUSCULAR HGB CONC 34.6 g/dl (32.0-37.0); MEAN CORPUSCULAR VOLUME 96.5 fl (82.0-101.0); MEAN PLATELET VOLUME 9.3 fl (7.4-10.4); MONOCYTE # 0.3 10^3/ul (0.3-0.9); MONOCYTES % 9.6 % (0.0-11.0); NEUTROPHIL # 2.5 10^3/ul (1.6-7.5); NEUTROPHILS % 85.5 % (39.0-77.0); PLATELET COUNT 100 10^3/UL (140-440); RED BLOOD COUNT 3.82 10^6/ul (4.70-6.10)
[2016-08-30] MEDS ORDERED: ACETAMINOPHEN 325 MG TAB PO PRN ×2 (12:00→17:30)
[2016-08-30] MEDS ORDERED: ONDANSETRON 4 MG INJ IV PRN ×2 (12:00→17:30)
[2016-08-30 15:50] VITALS: TEMP 98.9
--- NOTE | 2016-08-30 16:55 | CONS ---
Date/Time of Note Date/Time of Note DATE: 08/30/16 TIME: 16:44 Assessment/Plan Assessment/Plan Additional Assessment/Plan Severe aortic stenosis Mild acute decompensated diastolic congestive heart failure Borderline blood pressure Preserved ejection fraction Mild nonobstructive coronary artery disease Lower extremity ulcerations -Patient with known history of aortic stenosis, severe. He is awaiting surgery. As per the patient, the hold up has been his lower extremity ulcers, and need for possible plastic surgery. His blood pressure has been on the lower end, I would hold all antihypertensives. He does have mild congestion on lung examination, given his low blood pressure, I would not give any diuretics at the current time. His vascular surgeon is Dr. Nesbitt. Consultation Date/Type/Reason Admit Date/Time Type of Consultation: cv Reason for Consultation Dizziness Hx of Present Illness This is a 75-year-old male with severe aortic stenosis, hypertension, lower extremity ulcers who presents with dizziness and near syncope. Patient states that with strenuous activity, he gets lightheaded, feels flushed, short of breath and almost passes out. Once he sits down, his symptoms resolved after a few minutes. This is been happening more often over the past couple days. He did have a recent "cold" associate with cough and phlegm production. He does have a history of severe aortic stenosis and is awaiting intervention. The hold up has been lower external and ulcers and infection. 12 point review of systems was performed with all pertinent positives and negatives mentioned above and all else is negative Past Medical History Aortic stenosis Medical History: congestive heart failure, high cholesterol, hypertension Family History Significant Family History: no pertinent family hx Social History Smoking Status: Never smoker Exam/Review of Systems Vital Signs Vitals Vital Signs Date Time Temp Pulse Resp B/P Pulse Ox O2 Delivery O2 Flow Rate FiO2 08/30/16 15:50 98.9 85 25 90/58 08/30/16 15:16 96 Room Air Exam Constitutional: alert, oriented Head: normocephalic Neck: supple Respiratory: other (course breath sounds bilaterally with mild scattered rhonchi, no wheezing) Cardiovascular: other (S1, diminished S2), regular rate and rhythm, systolic murmur Gastrointestinal: bowel sounds, non-tender, soft Extremities: edema, other (bandages on lower extremities) Results Result Diagram: 08/30/16 0840 08/30/16 0840 Results 24 hrs Laboratory Tests Test 08/30/16 08:40 08/30/16 09:38 Alanine Aminotransferase (ALT/SGPT) 32 Albumin 3.9 Albumin/Globulin Ratio 1.14 Alkaline Phosphatase 72 Anion Gap 16 Aspartate Amino Transf (AST/SGOT) 23 Basophils # 0.0 Basophils % 0.0 Blood Urea Nitrogen 20 Calcium Level 9.1 Carbon Dioxide Level 26 Chloride Level 100 Creatinine 1.24 Direct Bilirubin 0.00 Eosinophils # 0.0 Eosinophils % 0.1 Globulin 3.40 H Glucose Level 227 H Hematocrit 36.8 L Hemoglobin 12.7 L Indirect Bilirubin 0.2 Lymphocytes # 0.1 L Lymphocytes % 4.8 L Mean Corpuscular Hemoglobin 33.4 H Mean Corpuscular Hemoglobin Concent 34.6 Mean Corpuscular Volume 96.5 Mean Platelet Volume 9.3 Monocytes # 0.3 Monocytes % 9.6 Neutrophils # 2.5 Neutrophils % 85.5 H Nucleated Red Blood Cells # 0.0 Nucleated Red Blood Cells % 0.0 Platelet Count 100 L Potassium Level 4.3 Red Blood Count 3.82 L Red Cell Distribution Width 14.0 Sodium Level 138 Total Bilirubin 0.2 Total Protein 7.3 Troponin I 0.079 White Blood Count 3.0 #L Bedside Glucose 223 H Procedures Procedures ECG demonstrates sinus rhythm, right bundle-branch block, no significant STT wave abnormalities Sam Yousif DO Aug 30, 2016 16:54
[2016-08-30 17:01] VITALS: BP 107/57; RESP 19
[2016-08-30 17:16] VITALS: PULSE 92
[2016-08-30] MEDS ORDERED: morphine 2 MG INJ IV PRN (17:30)
[2016-08-30] MEDS ORDERED: NACL 0.9% 3 ML SYG IV SCH (17:30)
[2016-08-30] MEDS ORDERED: HYDROCODONE/APAP (5/325) TAB PO PRN (17:30)
[2016-08-30] MEDS ORDERED: ZOLPIDEM 5 MG TAB PO PRN (17:30)
[2016-08-30] MEDS ORDERED: DOCUSATE SODIUM 100 MG CAP PO PRN (17:30)
[2016-08-30 17:46] VITALS: Ht 188 cm; Wt 120.0 kg
[2016-08-30] MEDS ORDERED: VANCOMYCIN IV PER PHARMACY XX SCH (18:00)
--- NOTE | 2016-08-30 18:15 | HP ---
DATE OF ADMISSION: 08/30/2016 CHIEF COMPLAINT: Syncope. HISTORY OF PRESENT ILLNESS: The patient is a 75-year-old male with a history of diabetes with diabe tic foot ulcer with skin infections in both lower extremities, status post skin graft. The patient also has a known history of aortic valve stenosis and is scheduled to receive valve replacement in t he future once the foot infection is stable. The patient was recently hospitalized here in the [facility] of July. The patient final diagnosis on that admission was presyncope secondary to hypoten michael secondary to aortic stenosis. The patient states that he has no exact date when he had his bernie ve replacements. He is not sure if this could have happened secondary to his comorbidities. The p atient poorly supervised today. States that he kept having presyncopal episodes over the past 2 day s. His reportedly told him that he had passed out. The patient denies any complaints at this time. Denies any chest pain or shortness of breath. PAST MEDICAL HISTORY: As per HPI. HOME MEDICATIONS: 1. Doxazosin. 2. Pravastatin. 3. Glipizide. ALLERGIES: PENICILLIN, BACITRACIN, NEOMYCIN AND POLYMYXIN B. FAMILY HISTORY: Denies. SOCIAL HISTORY: Denies any alcohol, tobacco, or drug abuse. REVIEW OF SYSTEMS: A 12-point review of systems negative except that as in HPI. PHYSICAL EXAMINATION: VITAL SIGNS: Temperature is 98.9, pulse 85, respiration is 25, BP is 90/58, saturation 96% on room air. GENERAL: No acute distress, alert and oriented. HEENT: Normocephalic, atraumatic. LUNGS: Clear to auscultation. CARDIOVASCULAR: Regular rate and rhythm. ABDOMEN: Nondistended, nontender, soft. EXTREMITIES: No clubbing, cyanosis, or edema. SKIN: Skin wounds covered in dressings. LABORATORIES: White count 2.0, hemoglobin 12.7, platelets 100. Chemistry within normal limits exce pt for glucose of 277. DIAGNOSTICS: Chest x-ray shows heart remains in upper normal size with pulmonary vasculature not co ngested, increased interstitial prominence suspicious for interstitial pneumonia. Brain CT shows mo derate generalized cerebral atrophy without evidence of intracranial mass, hemorrhages or midline sh ift. ASSESSMENT AND PLAN: 1. Syncope, cause is likely secondary to his hypotension and aortic valve stenosis. Cardiology has already consulted the patient. The patient needs aortic valve replacement. Hold up was secondary to his lower extremity ulcers with need for plastic surgery specifically a skin graft. This has not been done. Home antihypertensives have been held. No diuretics will be given secondary to low blo od pressure. Of note, the patient's vascular surgeon is Dr. Nesbitt. 2. Diabetes. Continue home medications. 3. Hypertension. Hold p.o. medications. 4. Foot ulcers, status post skin graft prophylaxis, Lovenox. Dictated By: CYRIL ELAINE MD BS/NTS Conf#: [id number] DID#: [id number]
[2016-08-30] MEDS: INSULIN ASPART [NOVOLOG] 3 ML PEN SC SCH ×2 (18:51→21:00)
[2016-08-30] MEDS ORDERED: VANCOMYCIN 2 GM in SOD CHLORIDE 0.9% 500 ML IVPB ONE (20:00)
[2016-08-30] MEDS: ALBUTEROL/IPRATROPIUM (NEB) 3 ML AMP HHN PRN (20:13)
[2016-08-30 20:20] VITALS: PULSE 86
[2016-08-30] MEDS: ATORVASTATIN 20 MG TAB PO SCH (20:56)
[2016-08-30 20:57] VITALS: BP 95/50; RESP 20
[2016-08-30] MEDS: AZTREONAM 2 GM in SOD CHLORIDE 0.9% 100 ML IVPB SCH (20:59)
[2016-08-30] MEDS: INSULIN GLARGINE [LANtus] 3 ML PEN SC SCH (21:22)
[2016-08-31] VITALS (13 sets, daily range): BP systolic 98–111; BP diastolic 55–81; PULSE 72–165; RESP 18–20
[2016-08-31] MEDS: ALBUTEROL/IPRATROPIUM (NEB) 3 ML AMP HHN PRN (01:29)
[2016-08-31] MEDS: ACCUCHECK XX SCH (02:00)
[2016-08-31] MEDS ORDERED: LEVALBUTEROL (NEB) 0.63 MG/3 ML AMP HHN PRN (03:00)
[2016-08-31] MEDS ORDERED: FUROSEMIDE 20 MG INJ IV ONE (03:00)
[2016-08-31] MEDS ORDERED: METHYLPREDNISOLONE 125 MG INJ IV ONE (03:00)
[2016-08-31] MEDS ORDERED: DIGOXIN 500 MCG INJ IV ONE (04:00)
[2016-08-31] MEDS: PANTOPRAZOLE 40 MG INJ IV SCH (05:13)
[2016-08-31] MEDS: IPRATROPIUM (NEB) 0.5 MG/2.5 ML AMP HHN SCH ×6 (05:31→23:16)
[2016-08-31] MEDS: LEVALBUTEROL (NEB) 0.63 MG/3 ML AMP HHN SCH ×7 (05:31→23:16)
--- NOTE | 2016-08-31 06:28 | CONS ---
DATE OF ADMISSION: 08/30/2016 DATE OF CONSULTATION: 08/30/2016 TYPE OF CONSULTATION: Infectious Disease. REASON FOR CONSULTATION: Antibiotic management. HISTORY OF PRESENT ILLNESS: Marcel Lopez is a 75-year-old male who comes in with syncope. His p ast problems include: 1. Adult-onset diabetes mellitus. 2. Diabetic foot ulcer with skin infection in both lower extremities, status post skin graft. 3. History of aortic valve stenosis. He is scheduled to receive valve replacement once his foot in fection is stable. The patient was hospitalized at the beginning of July and was thought to have presyncopal attack secondary to hypotension secondary to aortic stenosis. He has had 3 syncopal ep isodes over the past 2 days. His told him that he had passed out. HE IS ALSO ALLERGIC TO ____ , BACITRACIN, NEOMYCIN AND POLYMYXIN B. On admission his white count was 3.0; H and H of 12.7 and 3 6.8; platelet count of 100,000. BUN and creatinine was 20/1.24. His liver function tests were norm al. A chest x-ray showed the heart remains in the upper normal in size, interstitial prominence charlie picious for interstitial edema. PAST MEDICAL HISTORY: Operations: None noted. FAMILY HISTORY: Noncontributory. SOCIAL HISTORY: He does not smoke, drink or abuse drugs. ALLERGIES: NONE TO ____, SULFA OR FOODS. MEDICATIONS: Per chart. REVIEW OF SYSTEMS: As per HPI. PHYSICAL EXAMINATION: GENERAL: The patient is a well-developed, well-nourished male who is alert, responsive, in no acute distress. VITAL SIGNS: Stable. He is afebrile. SKIN: Without generalized rash. HEENT: Within normal limits. NECK: Supple. LYMPH NODES: None palpable. CHEST: Decreased breath sounds at the bases. HEART: Without murmur or gallop. ABDOMEN: Soft, nontender, without organosplenomegaly or masses. EXTREMITIES: Without cyanosis, clubbing, or edema. RECTAL AND GENITAL: Deferred. NEUROLOGIC: Evaluation within normal limits. IMPRESSION AND PLAN: The patient was placed on vancomycin and aztreonam. Blood cultures were order ed as was lactic acid. We should get podiatry to evaluate him. We need a plastic surgery consult. He needs some skin grafts on his lower extremity ulcers. I will dictate my findings to the hospita list. Dictated By: RHETT ALARCON MD, JD/MONSTER Conf#: [id number] DID#: [id number]
[2016-08-31] MEDS ORDERED: DILTIAZEM-D5W 125MG/125ML DRIP 125 ML IV SCH (07:00)
[2016-08-31] MEDS ORDERED: SOD CHLORIDE 0.9% 250 ML IV ONE (07:00)
[2016-08-31 07:36] LABS: BASOPHILS % 0.2 % (0.0-2.0); EOSINOPHILS % 0.3 % (0.0-7.0); HEMATOCRIT 34.7 % (42.0-52.0); LYMPHOCYTES # 0.2 10^3/ul (0.8-2.9); LYMPHOCYTES % 5.8 % (15.0-51.0); MEAN CORPUSCULAR HEMOGLOBIN 33.2 pg (29.0-33.0); MEAN CORPUSCULAR HGB CONC 34.6 g/dl (32.0-37.0); MONOCYTE # 0.1 10^3/ul (0.3-0.9); MONOCYTES % 2.8 % (0.0-11.0); NEUTROPHIL # 3.2 10^3/ul (1.6-7.5); NEUTROPHILS % 90.9 % (39.0-77.0); PLATELET COUNT 103 10^3/UL (140-440); RED BLOOD COUNT 3.62 10^6/ul (4.70-6.10); RED CELL DISTRIBUTION WIDTH 13.7 % (11.5-14.5); UNCORRECTED WBC 3.5 10^3/ul (4.8-10.8); WHITE BLOOD COUNT 3.5 10^3/ul (4.8-10.8)
[2016-08-31 07:40] LABS: CONDITION 1; LH ANALYZER COMMENTS 1
[2016-08-31 07:48] LABS: POTASSIUM 4.7 mmol/L (3.5-5.1)
[2016-08-31 07:51] LABS: CREATININE 1.26 mg/dl (0.61-1.24); PHOSPHORUS 3.4 mg/dl (2.5-4.9)
[2016-08-31 07:52] LABS: CALCIUM 8.7 mg/dl (8.4-10.2); MAGNESIUM 1.8 mg/dl (1.7-2.5)
[2016-08-31] MEDS: INSULIN ASPART [NOVOLOG] 3 ML PEN SC SCH ×7 (08:27→21:00)
[2016-08-31] MEDS ORDERED: glipiZIDE (XL) 5 MG TAB PO SCH (09:00)
[2016-08-31] MEDS ORDERED: FUROSEMIDE 20 MG INJ IV SCH (09:00)
[2016-08-31] MEDS ORDERED: ENOXAPARIN 40 MG/0.4 ML SYG SC SCH (09:00)
[2016-08-31] MEDS: AZTREONAM 2 GM in SOD CHLORIDE 0.9% 100 ML IVPB SCH ×2 (09:51→21:33)
--- NOTE | 2016-08-31 16:21 | CONS ---
Date/Time of Note Date/Time of Note DATE: 08/31/16 TIME: 16:18 Assessment/Plan Assessment/Plan Additional Assessment/Plan SIRS Severe aortic stenosis Mild acute decompensated diastolic congestive heart failure Borderline blood pressure Preserved ejection fraction Mild nonobstructive coronary artery disease Lower extremity ulcerations -Patient with elevated temperature yesterday, lactic acidosis and borderline blood pressure concerning for sepsis. Has been inserted on antibiotics. Converted to atrial fibrillation today and Cardizem drip was started and converted back to sinus. Would start amiodarone to help maintain in sinus rhythm. Patient with significant risk factors for thromboembolic events and will start anticoagulation if no contraindication. Change diuretics to by mouth as long as blood pressure permits. Consultation Date/Type/Reason Admit Date/Time Aug 30, 2016 at 11:49 Initial Consult Date Type of Consultation: cv 24 HR Interval Summary Free Text/Dictation Patient feeling better today, denies shortness of breath, chest pain. Was having palpitations today Exam/Review of Systems Vital Signs Vitals Vital Signs Date Time Temp Pulse Resp B/P Pulse Ox O2 Delivery O2 Flow Rate FiO2 08/31/16 15:55 97.5 80 18 104/58 98 08/31/16 15:00 3.0 08/31/16 14:59 Nasal Cannula 08/31/16 05:34 28 Exam No apparent distress Constitutional: alert, oriented Head: normocephalic Neck: supple Respiratory: other (course breath sounds bilaterally, no wheezing) Cardiovascular: other (S1-S2 heard), regular rate and rhythm, systolic murmur Gastrointestinal: bowel sounds, non-tender, soft Extremities: edema Results Result Diagram: 08/31/16 0715 08/31/16 0715 Results 24 hrs Laboratory Tests Test 08/30/16 17:57 08/30/16 19:08 08/30/16 20:14 08/31/16 00:20 Bedside Glucose 144 138 Lactic Acid Level 0.9 0.9 Test 08/31/16 07:15 08/31/16 08:08 08/31/16 12:05 08/31/16 12:15 Anion Gap 20 H Basophils # 0.0 Basophils % 0.2 Blood Urea Nitrogen 23 H Calcium Level 8.7 Carbon Dioxide Level 23 Chloride Level 101 Creatinine 1.26 H Eosinophils # 0.0 Eosinophils % 0.3 Glucose Level 200 Hematocrit 34.7 L Hemoglobin 12.0 L Hemoglobin A1c 5.6 Lactic Acid Level 3.1 H 3.6 H Lymphocytes # 0.2 L Lymphocytes % 5.8 L Magnesium Level 1.8 Mean Corpuscular Hemoglobin 33.2 H Mean Corpuscular Hemoglobin Concent 34.6 Mean Corpuscular Volume 96.0 Mean Platelet Volume 9.0 Monocytes # 0.1 L Monocytes % 2.8 Neutrophils # 3.2 Neutrophils % 90.9 H Nucleated Red Blood Cells # 0.0 Nucleated Red Blood Cells % 0.0 Phosphorus Level 3.4 Platelet Count 103 L Potassium Level 4.7 Red Blood Count 3.62 L Red Cell Distribution Width 13.7 Sodium Level 139 White Blood Count 3.5 L Bedside Glucose 230 H 248 H Medications Medications Current Medications Ondansetron HCl (Zofran Inj) 4 mg Q6H PRN IV NAUSEA AND/OR VOMITING; Start 08/30 at 17:30 Acetaminophen (Tylenol Tab) 650 mg Q6H PRN PO PAIN LEVEL 1-3 OR FEVER; Start at 17:30 Acetaminophen/ Hydrocodone Bitart ([place] (5/325)) 1 tab Q6H PRN PO MODERATE PAIN LEVEL 4-6; Start 08/30/16 at 17:30 Morphine Sulfate (morphine) 2 mg Q4H PRN IV SEVERE PAIN LEVEL 7-10; Start at 17:30 Docusate Sodium (Colace) 100 mg Q12H PRN PO CONSTIPATION; Start 08/30/16 at 17: 30 Zolpidem Tartrate (Ambien) 5 mg QHS PRN PO SLEEP; Start 08/30/16 at 17:30 Pantoprazole (Protonix Iv) 40 mg DAILY@06 IV Last administered on 08/31/16 05: 13; Admin Dose 40 MG; Start 08/31/16 at 06:00 Enoxaparin Sodium (Lovenox) 40 mg DAILY SC Last administered on 08/31/16 08:31 ; Admin Dose 40 MG; Start 08/31/16 at 09:00 Atorvastatin Calcium (Lipitor) 20 mg DAILY@21 PO Last administered on 08/30/16 20:56; Admin Dose 20 MG; Start 08/30/16 at 21:00 Diagnostic Test (Pha) (Accucheck) 1 ea 02 XX ; Start 08/31/16 at 02:00 Insulin Glargine 10 unit 10 unit HS SC Last administered on 08/30/16 21:22; Admin Dose 10 UNIT; Start 08/30/16 at 21:00 Aztreonam 2 gm/ Sodium Chloride 100 ml @ 100 mls/hr Q12 IVPB Last administered on 08/31/16 09:51; Admin Dose 100 MLS/HR; Start 08/30/16 at 21:00 Vancomycin HCl/ Sodium Chloride (Vancocin/NS) 250 ml @ 83.333 mls/ hr Q24H IVPB ; Start 08/31/16 at 20:00 Furosemide 20 mg 20 mg DAILY IV Last administered on 08/31/16 08:26; Admin Dose 20 MG; Start 08/31/16 at 09:00 Diltiazem HCl (Cardizem-D5W 125 Mg/125 ml Drip) 125 ml @ 10 mls/hr TITRATE IV Last administered on 08/31/16 07:42; Admin Dose 10 MLS/HR; Start 08/31/16 at 07: 00 Sam Yousif DO Aug 31, 2016 16:21
[2016-08-31] MEDS ORDERED: AMIODARONE 200 MG TAB PO ONE (16:30)
--- NOTE | 2016-08-31 17:08 | PN ---
Date/Time of Note Date/Time of Note DATE: 08/31/16 TIME: 16:54 Assessment/Plan VTE Prophylaxis VTE Prophylaxis Intervention: other Lines/Catheters IV Catheter Type (from Nrs): Saline Lock Urinary Cath still in place: No Assessment/Plan Chief Complaint/Hosp Course 1. Syncope 2/2 Severe and/or sepsis -Cards consult appreciated, will try to have transferred to [place] where is CT surgeon resides -will need to be R/O for sepsis prior to surgery -started on Eliquis 2. Sepsis likely 2/2 cellulitis with elevated Lactic Acid -cont Abx per ID -FU on Blood Cx 3. Diabetes-sugars elevated -cont SubQ Insulin and NISS -A1C at 5.6 4. Hx of Hypertension-currently low -Hold p.o. medications 5. Acute Resp Distress 2/2 Pulm Edema from -No Diuretics at this time 2/2 Hypotension PPx- Eliquis Problems: Subjective 24 Hr Interval Summary Constitutional: no complaints Exam/Review of Systems Vital Signs Vitals Vital Signs Date Time Temp Pulse Resp B/P Pulse Ox O2 Delivery O2 Flow Rate FiO2 08/31/16 15:55 97.5 80 18 104/58 98 08/31/16 15:00 3.0 08/31/16 14:59 Nasal Cannula 08/31/16 05:34 28 Exam Constitutional: alert, oriented Respiratory: clear to auscultation Cardiovascular: regular rate and rhythm Gastrointestinal: soft, No distended Musculoskeletal: No nl extremities to inspection Results Result Diagram: 08/31/16 0715 08/31/16 0715 Results 24 hrs Laboratory Tests Test 08/30/16 17:57 08/30/16 19:08 08/30/16 20:14 08/31/16 00:20 Bedside Glucose 144 138 Lactic Acid Level 0.9 0.9 Test 08/31/16 07:15 08/31/16 08:08 08/31/16 12:05 08/31/16 12:15 Anion Gap 20 H Basophils # 0.0 Basophils % 0.2 Blood Urea Nitrogen 23 H Calcium Level 8.7 Carbon Dioxide Level 23 Chloride Level 101 Creatinine 1.26 H Eosinophils # 0.0 Eosinophils % 0.3 Glucose Level 200 Hematocrit 34.7 L Hemoglobin 12.0 L Hemoglobin A1c 5.6 Lactic Acid Level 3.1 H 3.6 H Lymphocytes # 0.2 L Lymphocytes % 5.8 L Magnesium Level 1.8 Mean Corpuscular Hemoglobin 33.2 H Mean Corpuscular Hemoglobin Concent 34.6 Mean Corpuscular Volume 96.0 Mean Platelet Volume 9.0 Monocytes # 0.1 L Monocytes % 2.8 Neutrophils # 3.2 Neutrophils % 90.9 H Nucleated Red Blood Cells # 0.0 Nucleated Red Blood Cells % 0.0 Phosphorus Level 3.4 Platelet Count 103 L Potassium Level 4.7 Red Blood Count 3.62 L Red Cell Distribution Width 13.7 Sodium Level 139 White Blood Count 3.5 L Bedside Glucose 230 H 248 H Test 08/31/16 16:37 Bedside Glucose 205 Medications Medications Current Medications Ondansetron HCl (Zofran Inj) 4 mg Q6H PRN IV NAUSEA AND/OR VOMITING; Start 08/30 at 17:30 Acetaminophen (Tylenol Tab) 650 mg Q6H PRN PO PAIN LEVEL 1-3 OR FEVER; Start at 17:30 Acetaminophen/ Hydrocodone Bitart ([place] (5/325)) 1 tab Q6H PRN PO MODERATE PAIN LEVEL 4-6; Start 08/30/16 at 17:30 Morphine Sulfate (morphine) 2 mg Q4H PRN IV SEVERE PAIN LEVEL 7-10; Start at 17:30 Docusate Sodium (Colace) 100 mg Q12H PRN PO CONSTIPATION; Start 08/30/16 at 17: 30 Zolpidem Tartrate (Ambien) 5 mg QHS PRN PO SLEEP; Start 08/30/16 at 17:30 Pantoprazole (Protonix Iv) 40 mg DAILY@06 IV Last administered on 08/31/16 05: 13; Admin Dose 40 MG; Start 08/31/16 at 06:00 Atorvastatin Calcium (Lipitor) 20 mg DAILY@21 PO Last administered on 08/30/16 20:56; Admin Dose 20 MG; Start 08/30/16 at 21:00 Diagnostic Test (Pha) (Accucheck) 1 ea 02 XX ; Start 08/31/16 at 02:00 Insulin Glargine 10 unit 10 unit HS SC Last administered on 08/30/16 21:22; Admin Dose 10 UNIT; Start 08/30/16 at 21:00 Aztreonam 2 gm/ Sodium Chloride 100 ml @ 100 mls/hr Q12 IVPB Last administered on 08/31/16t 09:51; Admin Dose 100 MLS/HR; Start 08/30/16 at 21:00 Vancomycin HCl/ Sodium Chloride (Vancocin/NS) 250 ml @ 83.333 mls/ hr Q24H IVPB ; Start 08/31/16 at 20:00 Amiodarone HCl (Cordarone) 400 mg BID PO ; Start 08/31/16 at 21:00 Apixaban (Eliquis) 5 mg BID PO ; Start 09/01/16 at 09:00 Furosemide (Lasix) 20 mg DAILY PO ; Start 09/01/16 at 09:00 CYRIL ELAINE Aug 31, 2016 17:06
--- NOTE | 2016-08-31 18:05 | PN ---
DATE: 08/31/2016 SUBJECTIVE: No acute changes. The patient is alert, denies pain, discomfort, looks comfortable, no fevers, no nausea, vomiting, diarrhea. LABORATORY DATA: WBC today 3.5, H and H 12 and 34.7, platelets 103, neutrophils 90.9, BUN 23, creat inine 1.26. Sugar 248 this morning. DIAGNOSTICS: Chest x-ray from yesterday revealed increased interstitial prominence suspicious for i nterstitial edema. A CT of the brain yesterday was basically negative for intracranial masses, hemor rhage or midline shift. ANTIMICROBIALS: The patient was started on vancomycin and aztreonam. ALLERGIES: HE IS ALLERGIC TO PENICILLIN. PHYSICAL EXAMINATION: GENERAL: This is well-developed, fragile, elderly man who is alert, in no distress. HEENT: Head atraumatic, normocephalic. Sclerae anicteric. Buccal mucosa dry. NECK: Supple. CHEST: Rise symmetrical, breath sounds clear with scattered crackles to bases. HEART: S1, S2. ABDOMEN: Soft, bowel tones present. EXTREMITIES: Without cyanosis. Bilateral lower extremities Yvan wrapped and patient also has extrem ity edema as well as anasarca. ASSESSMENT: 1. Severe aortic stenosis with mild acute decompensated congestive heart failure. 2. Bilateral lower extremities diabetic ulceration, status post skin graft. 3. Obesity. 4. Diabetes. PLAN: The patient remains stable on prophylactic antibiotics, pending valve replacement. We will c ontinue him on current regimen. We will send urine culture and blood culture if he spikes fevers. Follow up cardiology recommendations. Dictated By: LIBRADO AGUILAR ANCHOR [employer] PULLER for RHETT WHEELER/MONSTER Conf#: [id number] DID#: [id number]
[2016-08-31] MEDS: VANCOMYCIN 1.5 GM in SOD CHLORIDE 0.9% 250 ML IVPB SCH (20:33)
[2016-08-31] MEDS: AMIODARONE 200 MG TAB PO SCH (20:34)
[2016-08-31] MEDS: ATORVASTATIN 20 MG TAB PO SCH (20:35)
[2016-08-31] MEDS: INSULIN GLARGINE [LANtus] 3 ML PEN SC SCH (20:46)
[2016-09-01] VITALS (13 sets, daily range): BP systolic 97–127; BP diastolic 55–78; PULSE 60–78; RESP 16–22
[2016-09-01] MEDS: ACCUCHECK XX SCH (02:00)
[2016-09-01] MEDS: IPRATROPIUM (NEB) 0.5 MG/2.5 ML AMP HHN SCH ×7 (02:19→20:16)
[2016-09-01] MEDS: LEVALBUTEROL (NEB) 0.63 MG/3 ML AMP HHN SCH ×7 (02:19→20:16)
[2016-09-01] MEDS ORDERED: FUROSEMIDE 40 MG INJ IV ONE (03:00)
[2016-09-01] MEDS ORDERED: METHYLPREDNISOLONE 125 MG INJ IV ONE (03:00)
[2016-09-01] MEDS: PANTOPRAZOLE 40 MG INJ IV SCH (06:03)
[2016-09-01 06:14] LABS: CALCIUM 9.2 mg/dl (8.4-10.2); CREATININE 1.16 mg/dl (0.61-1.24)
[2016-09-01 06:25] LABS: BASOPHILS % 0.1 % (0.0-2.0); EOSINOPHILS % 0.4 % (0.0-7.0); HEMATOCRIT 35.7 % (42.0-52.0); HEMOGLOBIN 12.4 g/dl (14.0-18.0); LYMPHOCYTES # 0.4 10^3/ul (0.8-2.9); LYMPHOCYTES % 8.7 % (15.0-51.0); MEAN CORPUSCULAR HEMOGLOBIN 33.3 pg (29.0-33.0); MEAN CORPUSCULAR HGB CONC 34.6 g/dl (32.0-37.0); MEAN CORPUSCULAR VOLUME 96.1 fl (82.0-101.0); MEAN PLATELET VOLUME 9.3 fl (7.4-10.4); MONOCYTE # 0.2 10^3/ul (0.3-0.9); MONOCYTES % 5.1 % (0.0-11.0); NEUTROPHIL # 3.7 10^3/ul (1.6-7.5); NEUTROPHILS % 85.7 % (39.0-77.0); PLATELET COUNT 136 10^3/UL (140-440); RED BLOOD COUNT 3.72 10^6/ul (4.70-6.10); RED CELL DISTRIBUTION WIDTH 13.8 % (11.5-14.5); UNCORRECTED WBC 4.4 10^3/ul (4.8-10.8); WHITE BLOOD COUNT 4.4 10^3/ul (4.8-10.8)
[2016-09-01 06:52] LABS: CONDITION 1; LH ANALYZER COMMENTS 1; SUSPECT 1
[2016-09-01] MEDS: INSULIN ASPART [NOVOLOG] 3 ML PEN SC SCH ×7 (07:30→21:51)
[2016-09-01] MEDS: AMIODARONE 200 MG TAB PO SCH ×2 (08:40→21:46)
[2016-09-01] MEDS: AZTREONAM 2 GM in SOD CHLORIDE 0.9% 100 ML IVPB SCH ×2 (08:40→21:46)
[2016-09-01] MEDS: APIXABAN 5 MG TABLET PO SCH ×2 (08:40→21:46)
[2016-09-01] MEDS ORDERED: FUROSEMIDE 20 MG TAB PO SCH (09:00)
--- NOTE | 2016-09-01 11:01 | CONS ---
Date/Time of Note Date/Time of Note DATE: 09/01/16 TIME: 10:57 Assessment/Plan Assessment/Plan Additional Assessment/Plan SIRS Critical aortic stenosis with recurrent syncope and congestive heart failure Mild acute decompensated diastolic congestive heart failure Paroxysmal atrial fibrillation, currently sinus rhythm Borderline blood pressure Preserved ejection fraction Mild nonobstructive coronary artery disease Lower extremity ulcerations -Discussion with hospitalist, attempts are being made for transfer to [facility], which is the site of patient's cardiothoracic surgeon Dr. Sharif. Patient with recurrent syncope worsening over the past few weeks. He currently remains in sinus rhythm, would continue amiodarone. I did have a long discussion with the patient, daughter and at bedside. Patient with recurrent syncope likely secondary to critical aortic stenosis, we did discuss anticoagulation given his paroxysmal atrial fibrillation. Would continue while as an inpatient but this would have to be reassessed given his fall risk. He is on maintenance diuretics, would continue as blood pressure and renal function permits. I will give one extra dose of Lasix this afternoon. Consultation Date/Type/Reason Admit Date/Time Aug 30, 2016 at 11:49 Type of Consultation: cv 24 HR Interval Summary Free Text/Dictation Patient feeling better, denies palpitations, dizziness. Mild shortness of breath with activity but improving Exam/Review of Systems Vital Signs Vitals Vital Signs Date Time Temp Pulse Resp B/P Pulse Ox O2 Delivery O2 Flow Rate FiO2 09/01/16 08:20 76 20 95 Nasal Cannula 3.0 09/01/16 07:45 97.3 110/78 08/31/16 05:34 28 Intake and Output 08/31/16 08/31/16 09/01/16 15:00 23:00 07:00 Intake Total 545 ml 600 ml 800 ml Output Total 1450 ml 400 ml 2360 ml Balance -905 ml 200 ml -1560 ml Exam No apparent distress Constitutional: alert, oriented Head: normocephalic Neck: supple Respiratory: other (course breath sounds bilaterally with mild and expiratory wheezing) Cardiovascular: other (diminished S2), regular rate and rhythm, systolic murmur Gastrointestinal: bowel sounds, non-tender, soft Extremities: edema Results Result Diagram: 09/01/16 0540 09/01/16 0540 Results 24 hrs Laboratory Tests Test 08/31/16 12:05 08/31/16 12:15 08/31/16 16:37 08/31/16 18:38 Bedside Glucose 248 H 205 Lactic Acid Level 3.6 H 1.6 Test 08/31/16 20:12 09/01/16 05:40 09/01/16 08:10 Bedside Glucose 142 191 Anion Gap 17 H Basophils # 0.0 Basophils % 0.1 Blood Urea Nitrogen 29 H Calcium Level 9.2 Carbon Dioxide Level 26 Chloride Level 103 Creatinine 1.16 Eosinophils # 0.0 Eosinophils % 0.4 Glucose Level 154 Hematocrit 35.7 L Hemoglobin 12.4 L Lactic Acid Level 1.4 Lymphocytes # 0.4 L Lymphocytes % 8.7 L Magnesium Level 2.0 Mean Corpuscular Hemoglobin 33.3 H Mean Corpuscular Hemoglobin Concent 34.6 Mean Corpuscular Volume 96.1 Mean Platelet Volume 9.3 Monocytes # 0.2 L Monocytes % 5.1 Neutrophils # 3.7 Neutrophils % 85.7 H Nucleated Red Blood Cells # 0.0 Nucleated Red Blood Cells % 0.0 Platelet Count 136 #L Potassium Level 5.0 Red Blood Count 3.72 L Red Cell Distribution Width 13.8 Sodium Level 141 White Blood Count 4.4 #L Medications Medications Current Medications Ondansetron HCl (Zofran Inj) 4 mg Q6H PRN IV NAUSEA AND/OR VOMITING; Start 08/30 at 17:30 Acetaminophen (Tylenol Tab) 650 mg Q6H PRN PO PAIN LEVEL 1-3 OR FEVER; Start at 17:30 Acetaminophen/ Hydrocodone Bitart ([place] (5/325)) 1 tab Q6H PRN PO MODERATE PAIN LEVEL 4-6; Start 08/30/16 at 17:30 Morphine Sulfate (morphine) 2 mg Q4H PRN IV SEVERE PAIN LEVEL 7-10; Start at 17:30 Docusate Sodium (Colace) 100 mg Q12H PRN PO CONSTIPATION; Start 08/30/16 at 17: 30 Zolpidem Tartrate (Ambien) 5 mg QHS PRN PO SLEEP; Start 08/30/16 at 17:30 Pantoprazole (Protonix Iv) 40 mg DAILY@06 IV Last administered on 09/01/16 06: 03; Admin Dose 40 MG; Start 08/31/16 at 06:00 Atorvastatin Calcium (Lipitor) 20 mg DAILY@21 PO Last administered on 08/31/16 20:35; Admin Dose 20 MG; Start 08/30/16 at 21:00 Diagnostic Test (Pha) (Accucheck) 1 ea 02 XX ; Start 08/31/16 at 02:00 Insulin Glargine 10 unit 10 unit HS SC Last administered on 08/31/16 20:46; Admin Dose 10 UNIT; Start 08/30/16 at 21:00 Aztreonam 2 gm/ Sodium Chloride 100 ml @ 100 mls/hr Q12 IVPB Last administered on 09/01/16 08:40; Admin Dose 100 MLS/HR; Start 08/30/16 at 21:00 Vancomycin HCl/ Sodium Chloride (Vancocin/NS) 250 ml @ 83.333 mls/ hr Q24H IVPB Last administered on 08/31/16 20:33; Admin Dose 83.333 MLS/HR; Start at 20:00 Amiodarone HCl (Cordarone) 400 mg BID PO Last administered on 09/01/16 08:40; Admin Dose 400 MG; Start 08/31/16 at 21:00 Apixaban (Eliquis) 5 mg BID PO Last administered on 09/01/16 08:40; Admin Dose 5 MG; Start 09/01/16 at 09:00 Furosemide (Lasix) 20 mg DAILY PO Last administered on 09/01/16 08:41; Admin Dose 20 MG; Start 09/01/16 at 09:00 Sam Yousif DO Sep 01, 2016 11:01
--- NOTE | 2016-09-01 13:23 | PN ---
Date/Time of Note Date/Time of Note DATE: 09/01/16 TIME: 13:16 Assessment/Plan VTE Prophylaxis VTE Prophylaxis Intervention: other Lines/Catheters IV Catheter Type (from [facility]): Saline Lock Urinary Cath still in place: No Assessment/Plan Chief Complaint/Hosp Course 1. Syncope 2/2 Severe and/or sepsis -Cards consult appreciated, plan is to attempt to have pt transferred to [place] where his CT surgeon- Dr Sharif resides, surgery had been held so far 2/2 LE infection but is now s/p a skin graft and if Cx's continue to remain negative then should have surgery done as pt is now symptomatic, CM aware of plan -will need to be R/O for sepsis prior to surgery, Blood Cx is currently negative -started on Eliquis -Cards following 2. SIRS with lactic acidosis possibly 2/2 cellulitis of LE's-resolve with now nl Lactic Acid and afebrile -pt is s/p Skin graft recently -cont Abx per ID -FU on Blood Cx, currently negative 3. Diabetes-sugars elevated -cont SubQ Insulin and NISS -A1C at 5.6 4. Hx of Hypertension-currently low -Hold p.o. medications 5. Acute Resp Distress 2/2 Pulm Edema from -No Diuretics at this time 2/2 Hypotension PPx- Eliquis Problems: Subjective 24 Hr Interval Summary Respiratory: shortness of breath Exam/Review of Systems Vital Signs Vitals Vital Signs Date Time Temp Pulse Resp B/P Pulse Ox O2 Delivery O2 Flow Rate FiO2 09/01/16 13:09 78 09/01/16 12:44 98.0 18 114/57 98 09/01/16 11:23 Nasal Cannula 3.0 08/31/16 05:34 28 Intake and Output 08/31/16 08/31/16 09/01/16 15:00 23:00 07:00 Intake Total 545 ml 600 ml 800 ml Output Total 1450 ml 400 ml 2360 ml Balance -905 ml 200 ml -1560 ml Exam Constitutional: alert, oriented Respiratory: clear to auscultation Cardiovascular: regular rate and rhythm Gastrointestinal: soft, No distended Musculoskeletal: No nl extremities to inspection Results Result Diagram: 09/01/16 0540 09/01/16 0540 Results 24 hrs Laboratory Tests Test 08/31/16 16:37 08/31/16 18:38 08/31/16 20:12 09/01/16 05:40 Bedside Glucose 205 142 Lactic Acid Level 1.6 1.4 Anion Gap 17 H Basophils # 0.0 Basophils % 0.1 Blood Urea Nitrogen 29 H Calcium Level 9.2 Carbon Dioxide Level 26 Chloride Level 103 Creatinine 1.16 Eosinophils # 0.0 Eosinophils % 0.4 Glucose Level 154 Hematocrit 35.7 L Hemoglobin 12.4 L Lymphocytes # 0.4 L Lymphocytes % 8.7 L Magnesium Level 2.0 Mean Corpuscular Hemoglobin 33.3 H Mean Corpuscular Hemoglobin Concent 34.6 Mean Corpuscular Volume 96.1 Mean Platelet Volume 9.3 Monocytes # 0.2 L Monocytes % 5.1 Neutrophils # 3.7 Neutrophils % 85.7 H Nucleated Red Blood Cells # 0.0 Nucleated Red Blood Cells % 0.0 Platelet Count 136 #L Potassium Level 5.0 Red Blood Count 3.72 L Red Cell Distribution Width 13.8 Sodium Level 141 White Blood Count 4.4 #L Test 09/01/16 08:10 09/01/16 11:48 Bedside Glucose 191 219 Medications Medications Current Medications Ondansetron HCl (Zofran Inj) 4 mg Q6H PRN IV NAUSEA AND/OR VOMITING; Start 08/30 at 17:30 Acetaminophen (Tylenol Tab) 650 mg Q6H PRN PO PAIN LEVEL 1-3 OR FEVER; Start at 17:30 Acetaminophen/ Hydrocodone Bitart ([place] (5/325)) 1 tab Q6H PRN PO MODERATE PAIN LEVEL 4-6; Start 08/30/16 at 17:30 Morphine Sulfate (morphine) 2 mg Q4H PRN IV SEVERE PAIN LEVEL 7-10; Start at 17:30 Docusate Sodium (Colace) 100 mg Q12H PRN PO CONSTIPATION; Start 08/30/16 at 17: 30 Zolpidem Tartrate (Ambien) 5 mg QHS PRN PO SLEEP; Start 08/30/16 at 17:30 Pantoprazole (Protonix Iv) 40 mg DAILY@06 IV Last administered on 09/01/16 06: 03; Admin Dose 40 MG; Start 08/31/16 at 06:00 Atorvastatin Calcium (Lipitor) 20 mg DAILY@21 PO Last administered on 08/31/16 20:35; Admin Dose 20 MG; Start 08/30/16 at 21:00 Diagnostic Test (Pha) (Accucheck) 1 ea 02 XX ; Start 08/31/16 at 02:00 Insulin Glargine 10 unit 10 unit HS SC Last administered on 08/31/16 20:46; Admin Dose 10 UNIT; Start 08/30/16 at 21:00 Aztreonam 2 gm/ Sodium Chloride 100 ml @ 100 mls/hr Q12 IVPB Last administered on 09/01/16 08:40; Admin Dose 100 MLS/HR; Start 08/30/16 at 21:00 Vancomycin HCl/ Sodium Chloride (Vancocin/NS) 250 ml @ 83.333 mls/ hr Q24H IVPB Last administered on 08/31/16 20:33; Admin Dose 83.333 MLS/HR; Start at 20:00 Amiodarone HCl (Cordarone) 400 mg BID PO Last administered on 09/01/16 08:40; Admin Dose 400 MG; Start 08/31/16 at 21:00 Apixaban (Eliquis) 5 mg BID PO Last administered on 09/01/16 08:40; Admin Dose 5 MG; Start 09/01/16 at 09:00 Furosemide (Lasix) 20 mg DAILY PO Last administered on 09/01/16 08:41; Admin Dose 20 MG; Start 09/01/16 at 09:00 Furosemide (Lasix) 20 mg ONCE ONCE PO ; Start 09/01/16 at 15:00; Stop 09/01/16 at 15:01 CYRIL ELAINE Sep 01, 2016 13:23
[2016-09-01] MEDS ORDERED: Vancomycin Iv Per Pharmacy XX (14:45)
[2016-09-01] MEDS ORDERED: AMIO200T2 PO (14:45)
[2016-09-01] MEDS ORDERED: LAS20 PO (14:45)
[2016-09-01] MEDS ORDERED: FUROSEMIDE 20 MG TAB PO ONE (15:00)
--- NOTE | 2016-09-01 15:29 | CONS ---
Date/Time of Note Date/Time of Note DATE: 09/01/16 TIME: 15:26 Assessment/Plan Assessment/Plan Chief Complaint/Hosp Course SUBJECTIVE: No acute changes. The patient is alert, denies pain, discomfort, looks comfortable, no fevers, no nausea, vomiting, diarrhea. DIAGNOSTICS: Chest x-ray from yesterday revealed increased interstitial prominence suspicious for interstitial edema. A CT of the brain yesterday was basically negative for intracranial masses, hemorrhage or midline shift. ANTIMICROBIALS: vancomycin and aztreonam. ALLERGIES: HE IS ALLERGIC TO PENICILLIN. PHYSICAL EXAMINATION: GENERAL: This is well-developed, fragile, elderly man who is alert, in no distress. HEENT: Head atraumatic, normocephalic. Sclerae anicteric. Buccal mucosa dry. NECK: Supple. CHEST: Rise symmetrical, breath sounds clear with scattered crackles to bases. HEART: S1, S2. ABDOMEN: Soft, bowel tones present. EXTREMITIES: Without cyanosis. Bilateral lower extremities Yvan wrapped and patient also has extremity edema as well as anasarca. ASSESSMENT: 1. Severe aortic stenosis with mild acute decompensated congestive heart failure. 2. Bilateral lower extremities diabetic ulceration, status post skin graft. 3. Obesity. 4. Diabetes. PLAN: The patient remains stable, on prophylactic antibiotics, cardiology on case. We will continue him on current regimen. We will send urine culture and blood culture if he spikes fevers. [facility]u with pt's CTS DW staff Problems: Consultation Date/Type/Reason Admit Date/Time Aug 30, 2016 at 11:49 Initial Consult Date Type of Consultation: id Exam/Review of Systems Vital Signs Vitals Vital Signs Date Time Temp Pulse Resp B/P Pulse Ox O2 Delivery O2 Flow Rate FiO2 09/01/16 14:53 83 20 96 Nasal Cannula 3.0 09/01/16 12:44 98.0 114/57 08/31/16 05:34 28 Intake and Output 08/31/16 08/31/16 09/01/16 15:00 23:00 07:00 Intake Total 545 ml 600 ml 800 ml Output Total 1450 ml 400 ml 2360 ml Balance -905 ml 200 ml -1560 ml Results Result Diagram: 09/01/16 0540 09/01/16 0540 Results 24 hrs Laboratory Tests Test 08/31/16 16:37 08/31/16 18:38 08/31/16 20:12 09/01/16 05:40 Bedside Glucose 205 142 Lactic Acid Level 1.6 1.4 Anion Gap 17 H Basophils # 0.0 Basophils % 0.1 Blood Urea Nitrogen 29 H Calcium Level 9.2 Carbon Dioxide Level 26 Chloride Level 103 Creatinine 1.16 Eosinophils # 0.0 Eosinophils % 0.4 Glucose Level 154 Hematocrit 35.7 L Hemoglobin 12.4 L Lymphocytes # 0.4 L Lymphocytes % 8.7 L Magnesium Level 2.0 Mean Corpuscular Hemoglobin 33.3 H Mean Corpuscular Hemoglobin Concent 34.6 Mean Corpuscular Volume 96.1 Mean Platelet Volume 9.3 Monocytes # 0.2 L Monocytes % 5.1 Neutrophils # 3.7 Neutrophils % 85.7 H Nucleated Red Blood Cells # 0.0 Nucleated Red Blood Cells % 0.0 Platelet Count 136 #L Potassium Level 5.0 Red Blood Count 3.72 L Red Cell Distribution Width 13.8 Sodium Level 141 White Blood Count 4.4 #L Test 09/01/16 08:10 09/01/16 11:48 Bedside Glucose 191 219 Medications Medications Current Medications Ondansetron HCl (Zofran Inj) 4 mg Q6H PRN IV NAUSEA AND/OR VOMITING; Start 08/30 at 17:30 Acetaminophen (Tylenol Tab) 650 mg Q6H PRN PO PAIN LEVEL 1-3 OR FEVER; Start at 17:30 Acetaminophen/ Hydrocodone Bitart (Leonard (5/325)) 1 tab Q6H PRN PO MODERATE PAIN LEVEL 4-6; Start 08/30/16 at 17:30 Morphine Sulfate (morphine) 2 mg Q4H PRN IV SEVERE PAIN LEVEL 7-10; Start at 17:30 Docusate Sodium (Colace) 100 mg Q12H PRN PO CONSTIPATION; Start 08/30/16 at 17: 30 Zolpidem Tartrate (Ambien) 5 mg QHS PRN PO SLEEP; Start 08/30/16 at 17:30 Pantoprazole (Protonix Iv) 40 mg DAILY@06 IV Last administered on 09/01/16 06: 03; Admin Dose 40 MG; Start 08/31/16 at 06:00 Atorvastatin Calcium (Lipitor) 20 mg DAILY@21 PO Last administered on 08/31/16 20:35; Admin Dose 20 MG; Start 08/30/16 at 21:00 Diagnostic Test (Pha) (Accucheck) 1 ea 02 XX ; Start 08/31/16 at 02:00 Insulin Glargine 10 unit 10 unit HS SC Last administered on 08/31/16 20:46; Admin Dose 10 UNIT; Start 08/30/16 at 21:00 Aztreonam 2 gm/ Sodium Chloride 100 ml @ 100 mls/hr Q12 IVPB Last administered on 09/01/16 08:40; Admin Dose 100 MLS/HR; Start 08/30/16 at 21:00 Vancomycin HCl/ Sodium Chloride (Vancocin/NS) 250 ml @ 83.333 mls/ hr Q24H IVPB Last administered on 08/31/16 20:33; Admin Dose 83.333 MLS/HR; Start at 20:00 Amiodarone HCl (Cordarone) 400 mg BID PO Last administered on 09/01/16 08:40; Admin Dose 400 MG; Start 08/31/16 at 21:00 Apixaban (Eliquis) 5 mg BID PO Last administered on 09/01/16 08:40; Admin Dose 5 MG; Start 09/01/16 at 09:00 Furosemide (Lasix) 20 mg DAILY PO Last administered on 09/01/16 08:41; Admin Dose 20 MG; Start 09/01/16 at 09:00 LIBRADO AGUILAR NP Sep 01, 2016 15:29
[2016-09-01] MEDS: VANCOMYCIN 1.5 GM in SOD CHLORIDE 0.9% 250 ML IVPB SCH (20:31)
[2016-09-01] MEDS: ATORVASTATIN 20 MG TAB PO SCH (21:46)
[2016-09-01] MEDS: INSULIN GLARGINE [LANtus] 3 ML PEN SC SCH (21:54)
[2016-09-02] MEDS ORDERED: PANTOPRAZOLE (EC) 40 MG TAB PO SCH (06:00)
--- NOTE | 2016-09-02 09:53 | DS ---
DATE OF ADMISSION: 08/30/2016 DATE OF DISCHARGE: 09/02/2016 DISCHARGE DIAGNOSES: 1. Syncope, secondary to severe aortic stenosis. The plan is for transfer to [place] for aortic valve repair, by [facility]. Arrangements have already been made. Dr. Sharif has accepted the patient, under the [facility] Hospitalist Team. Currently a bed is awaiting. The patient is symptomatic wit h pulmonary edema and syncope. 2. Lactic acidosis, question of cellulitis secondary to lower extremities. Serious symptoms have n ow resolved. Patient is afebrile. Lactic acid has normalized. Patient has no leukocytosis. The p atlevi does have a history of lower extremity cellulitis, status post treatment, including skin rhona t. The patient's aortic valve repair for his aortic stenosis was being held until skin graft has be en done. The skin graft has now been done a week ago. It appears that the patient has no current s epsis at this time. Culture, after 1 day, is now negative. 3. Diabetes. Sugars were elevated but now stable. A1c is well controlled at 5.6. 4. History of hypertension. Patient's BP is now low, secondary to severe aortic stenosis. 5. Acute respiratory distress, secondary to pulmonary edema from aortic stenosis. Diuretics were i nitially held secondary to hypertension. But BP has improved and has been started on diuretics by [facility]. HOSPITAL COURSE: The patient is a 75-year-old male with known history of aortic stenosis, history o f diabetes with diabetic foot ulcer, and skin infections in both lower extremities. He is now statu s post skin graft approximately a week ago. The patient has been evaluated for an aortic valve repa ir, due to the aortic stenosis and was scheduled to receive valve repair by Dr. Sharif at [place]. This was being held, secondary to patient's lower extremity cellulitis and the plan was to wait fo r skin graft to be done prior to any aortic valve surgery; hence was done last week. The patient ne kadeem had any significant amount of syncope in the past, but prior to this hospitalization, he had syn cope multiple times, his blood pressure was severely low. He also was noted to have pulmonary edema on chest x-ray; hence, it was felt that the patient's aortic stenosis was getting more severe. It was felt that the patient needed more imminent surgery. Of note, the patient did have an echo recen tly, at the beginning of this month, that showed a severe aortic valve stenosis with an area of 0.73 cm. During the hospitalization it was noted that the patient did have a low grade fever and elevat ed lactic acid, felt that sepsis needed to be ruled out. The patient did have an ID consultation. Did have a blood culture that was negative after 1 day. He was put on prophylactic antibiotics. Th e patient was eventually started on low dose Lasix 20 mg p.o. daily, which he tolerated well. He wa s also started on Eliquis by cardiology and the patient was noted to have paroxysmal atrial fibrilla tion, converted to sinus rhythm; hence, the Eliquis having been initiated. The patient was also put on amiodarone for his paroxysmal atrial fibrillation. Because of the urgent nature of the patient' s aortic valve stenosis, it was felt that the patient would benefit from a direct transfer to [facility] where his cardiothoracic surgeon resides and, hence, arrangements were made with our c ase warehouse delivery manager, as well as [facility]' case packer and sealer, to make this transfer happen. The paticharly t has been accepted by the hospitalist service with [facility], [facility], and has been accepted by Dr Richar Sharif after Dr. Sharif had spoken to Dr. Yousif directly. Currently a bed at [place] is pending and, once a bed is available, the patient will be discharged for further care. Currently, at this point, patient's vitals, labs, and physical exam are stable. The patient has no acute complaints at this time and questions have been answered. CONDITION ON DISCHARGE: Fair. DISPOSITION: To [facility]. MEDICATIONS: 1. Amiodarone 400 b.i.d. is recommended. 2. Lasix 20 mg p.o. daily is recommended. 3. Vancomycin prophylactically for lower extremity cellulitis could be given as well; although, onc e again, blood cultures after 1 day, at this time, are negative and this could be discontinued. Further medications per physicians at [place]. The patient's home medications, doxazosin and glipizide are recommended to be held at this time. Th e patient can continue his home statin. Adjustments to the stain may be made by the physicians at [facility]. FOLLOWUP: The patient is to follow up with physicians at [place], including Dr. Sharif of Cardiot horacic Surgery. Greater than 30 minutes was spent coordinating discharge of the patient. Dictated By: CYRIL ELAINE MD BS/NTS Conf#: [id number] DID#: [id number]
== END 2016-09-02 00:14 | disposition short-term general hospital (02) | DRG 306 ==
LOC: E/R 08:20 → TEL 11:49
PROVIDERS: ADMIT Family Medicine; ATTEND Family Medicine
DX: I35.0 Nonrheumatic aortic (valve) stenosis (principal); I50.33 Acute on chronic diastolic (congestive) heart failure; E11.51 Type 2 diabetes mellitus with diabetic peripheral angiopathy without gangrene; R65.10 Systemic inflammatory response syndrome (SIRS) of non-infectious origin without acute organ dysfunction; E11.621 Type 2 diabetes mellitus with foot ulcer; I11.0 Hypertensive heart disease with heart failure; L03.119 Cellulitis of unspecified part of limb; E11.65 Type 2 diabetes mellitus with hyperglycemia; I45.10 Unspecified right bundle-branch block; I25.10 Atherosclerotic heart disease of native coronary artery without angina pectoris; R03.1 Nonspecific low blood-pressure reading; E78.00 Pure hypercholesterolemia, unspecified; E66.9 Obesity, unspecified; Z68.34 Body mass index [BMI] 34.0-34.9, adult
CPT/HCPCS: 36415; 70450; 71010; 80048; 80053; 82962; 83036; 83605; 83735; 84100; 84484; 85025; 87040; 93005; 94640; 94664; 94760; J1940; C9113; J1650; J1815; J2930; J3370; J7040; J7050

== ENCOUNTER 2017-07-12 08:53 | Emergency (ER) | payer OTHER ==
[~2017-07-12] VITALS: Ht 182.9 cm; Wt 114.0 kg
[~2017-07-12 08:53] MED LIST changes: +AMIO200T2 PO; -DOXA4TAB3 PO; -GLIP5TAB PO; +LAS20 PO; +Vancomycin Iv Per Pharmacy XX
[2017-07-12 08:55] VITALS: Ht 182.9 cm; Wt 114.0 kg
[2017-07-12] MEDS ORDERED: NA P133E10 RC (09:16)
[2017-07-12] MEDS ORDERED: POLY17PO6 PO (09:16)
--- NOTE | 2017-07-12 09:20 | ERD ---
ER Documentation Chief Complaint Chief Complaint constipated x 4-5 days HPI 76-year-old male presents the emergency department complaining of constipation. Over the last 4-5 days, patient feels as if there is a hardened piece of stool in his rectum he cannot pass other stool. He reports being able to tolerate oral intake without difficulty. He reports no vomiting or fever. He reports no significant abdominal pain and no bleeding. ROS All systems reviewed and are negative except as per history of present illness. Medications Home Meds Active Scripts Polyethylene Glycol* (Miralax*) 17 Gm Powd.pack, 17 GM PO DAILY Y for CONSTIPATION, #7 Prov:SUAD RICHARDS 07/12/17 Na Phos,M-B/Na Phos,Di-Ba (ENEMA HWGMT-RU-OVF) 133 Ml Enema, 133 ML RC BID for CONSTIPATION, #4 ENEMA Prov:SUAD RICHARDS 07/12/17 [Vancomycin Iv Per Pharmacy] 1 EA EACH No Conflict Check, 0 EA XX .PER PROTOCOL for 30 Days Prov:CYRIL ELAINE 09/01/16 Furosemide (Lasix) 20 Mg Tab, 20 MG PO DAILY for 30 Days, TAB Prov:CYRIL ELAINE 09/01/16 Amiodarone Hcl* (Amiodarone Hcl*) 200 Mg Tablet, 400 MG PO BID for 60 Days, TAB Prov:CYRIL ELAINE 09/01/16 Reported Medications Pravastatin Sodium* (Pravachol*) 40 Mg Tablet, 40 MG PO HS 12/17/14 Allergies Allergies: Coded Allergies: Penicillins (Verified Allergy, Unknown, 01/31/16) bacitracin (Verified Allergy, Unknown, 01/31/16) neomycin (Verified Allergy, Unknown, 01/31/16) polymyxin B (Verified Allergy, Unknown, 01/31/16) PMhx/Soc History of Surgery: Yes (VARICOSE VEINS STRIPED 55 YRS AGO; HERNIA REPAIR ) Anesthesia Reaction: No Hx Neurological Disorder: No Hx Respiratory Disorders: No Hx Cardiac Disorders: Yes (HTN; CHF; SEVERE AORTIC STENOSIS; HIGH CHOLESTEROL) Hx Psychiatric Problems: No Hx Miscellaneous Medical Probl: Yes (LISY LOWER EXT ULCERS ) Hx Alcohol Use: No Hx Substance Use: No Hx Tobacco Use: No Smoking Status: Never smoker FmHx Noncontributory for chief complaint Physical Exam Vitals Vital Signs Date Time Temp Pulse Resp B/P Pulse Ox O2 Delivery O2 Flow Rate FiO2 07/12/17 08:55 98.6 62 18 141/71 96 Physical Exam GENERAL: Elderly male in no acute distress HEENT: Pupils equal, round, and reactive to light. EOMI. There is no scleral icterus. NECK: C-spine is soft and supple, there is no meningismus. There is no cervical lymphadenopathy. LUNGS: Clear to auscultation bilaterally. There are no rales, wheezes or rhonchi. HEART: Regular rate and rhythm, no murmurs, clicks, rubs or gallops. ABDOMEN: Soft, non-tender, non-distended. There are bowel sounds in all four quadrants. No rebound or guarding. EXTREMITIES: Both lower extremities have chronic wounds which are wrapped with wound care dressings. There is erythema. There is no obvious drainage. NEURO: The patient moves all four extremities with 5/5 strength. Cranial nerves II - XII are intact. Normal gait. Alert and oriented SKIN: As noted above HEME/LYMPHATIC: There is no evidence of excessive bruising or lymphedema. PSYCHIATRIC: The patient does not appear anxious or depressed. Results 24 hrs Current Medications Medications (Trade) Dose Ordered Sig/Chaparrita Route PRN Reason Start Time Stop Time Status Last Admin Dose Admin Mineral Oil (Fleet Mineral Oil Enema) 133 ml ONCE ONCE MN 07/12/17 09:30 07/12/17 09:31 Procedures/MDM Patient was taken to a room, seen and examined. Patient was offered enemas and observation for potential disimpaction. Patient wished to try the enemas at home and felt comfortable with home care. Medical decision makin-year-old male presents the emergency department with what appears to be a fecal impaction. At this time, there is no evidence of obstruction as the patient is not vomiting. He has no evidence of abdominal pain tenderness. He is completely well-appearing. He feels comfortable treating himself at home and now appears to be appropriate with outpatient instructions Departure Diagnosis: Primary Impression: Impaction of colon Condition: Stable Patient Instructions: Fecal Impaction, Treated Additional Instructions: Please stop any pain medication you may be taking. See your doctor if not improving in the next 24 hours. Return immediately for any pain, bleeding, or vomiting. SUAD RICHARDS Jul 12, 2017 09:20
[2017-07-12] MEDS ORDERED: MINERAL OIL 133 ML ENEMA PR ONE (09:30)
== END 2017-07-12 09:50 | disposition home or self-care (01) ==
LOC: E/R 08:53
DX: K56.49 Other impaction of intestine (principal); I10 Essential (primary) hypertension; I50.9 Heart failure, unspecified; R40.2142 Coma scale, eyes open, spontaneous, at arrival to emergency department; R40.2252 Coma scale, best verbal response, oriented, at arrival to emergency department; R40.2362 Coma scale, best motor response, obeys commands, at arrival to emergency department
CPT/HCPCS: 99283